=== PATIENT | male | born 1955 | race Caucasian/White ===

== ENCOUNTER 2018-08-01 18:14 | Emergency (ER) | payer OTHER, BC ==
--- OUTSIDE RECORDS SUMMARY | 2018-08-01 18:16 | XMS REPORT | Clinical Summary ---
:1955 [address] Organization [facility] Address [address] [place] [address] Care Team Providers Name Role Phone Azeb Rose Primary Care Provider Allergies Not on File Medications Not on file Active Problems Not on file Social History Tobacco Use Types Packs/Day Years Used Date Never Assessed Sex Assigned at Date Recorded Not on file Job Start Date Occupation Industry Not on file Not on file Not on file Travel History Travel Start Travel End No recent travel history available. Last Filed Vital Signs Not on file Plan of Treatment Not on file Results Not on fileafter 07/31/2017 Insurance Payer Benefit Plan / Subscriber ID Type Phone Address Group BLUE CROSS/BLUE BCBS PPO POS EPO xxxxxxxxx PPO [phone] [address] [place] [address]
[2018-08-01] MEDS ORDERED: ONDANSETRON 4 MG/2 ML VIAL ONE ×2 (18:48→23:09)
[2018-08-01] MEDS ORDERED: FAMOTIDINE 20 MG/2 ML VIAL IV ONE (18:48)
[2018-08-01] MEDS ORDERED: NA CHLORIDE 0.9% 500 ML ONE (18:48)
[2018-08-01 18:52] LABS: Absolute Lymphocytes (CBC) 1.8 K/uL (0.7-4.9); Absolute Monocytes 0.9 K/uL (0.1-1.3); Absolute Neutrophil 11.1 K/uL (1.8-8.0); Basophils % 0.4 % (0-1.3); Eosinophils % 1.1 % (0-4.4); Hematocrit 56.8 % (39.6-49.0); Lymphocytes % 12.9 % (15.3-44.8); MPV 8.7 fL (7.6-11.3); Monocytes % 6.4 % (3.3-12.3); RBC Red Blood Cell Count 6.62 M/uL (4.33-5.43)
[2018-08-01 18:58] LABS: Protime INR 1.08
--- NOTE | 2018-08-01 19:16 | RAD REPORT ---
EXAM DESCRIPTION: RAD - Chest Single View - 08/01/2018 6:42 pm CLINICAL HISTORY: nausea/vomiting;Chest pain Chest pain. COMPARISON: Chest Single View dated 05/16/2016; CHEST PA AND LAT 2 VIEW dated 05/07/2015; CHEST SINGLE VIEW dated 04/26/2015; CHEST SINGLE VIEW dated 04/24/2015 FINDINGS: Portable technique limits examination quality. The lungs are grossly clear. The heart is normal in size. No displaced fractures. IMPRESSION: No acute intrathoracic process suspected.
[2018-08-01 19:17] LABS: ALT/SGPT 44 U/L (12-78); AST/SGOT 28 U/L (15-37); Albumin 3.9 g/dL (3.4-5.0); Alkaline Phosphatase 100 U/L (45-117); BUN Blood Urea Nitrogen 15 mg/dL (7-18); Bicarbonate 25 mmol/L (21-32); Bilirubin Direct 0.1 mg/dL (0-0.2); Bilirubin Total 0.5 mg/dL (0.2-1.0); Glucose Level 93 mg/dL (74-106); Lipase 163 U/L (73-393); Magnesium 2.2 mg/dL (1.8-2.4); Potassium 3.9 mmol/L (3.5-5.1); Protein, Total 8.5 g/dL (6.4-8.2); Sodium Level 141 mmol/L (136-145); Troponin (Emerg Dept Use Only) < 0.02 ng/mL (0.0-0.045)
[2018-08-01] MEDS ORDERED: ACETAMINOPHEN 500 MG TAB ONE (20:05)
--- NOTE | 2018-08-01 22:16 | ER ---
Nurse's Notes [facility] Name: Ihsan Alvares Age: 63 yrs Sex: Male : 1955 Arrival Date: 08/01/2018 Time: 18:15 Bed 27 Private MD: Diagnosis: Nausea and vomiting;Diarrhea, unspecified Presentation: 08/01 18:20 Presenting complaint: EMS states: patient was in urgent care today checking in when she mg2 suddenly feels nauseated and started vomiting, with on and off chest pain and near syncopal attack. . denies abdominal pain. BGL-[id number], zofran 4 mg was given IV. Transition of care: patient was not received from another setting of care. Onset of symptoms was August 01, 2018. Risk Assessment: Do you want to hurt yourself or someone else? Patient reports no desire to harm self or others. Initial Sepsis Screen: Does the patient meet any 2 criteria? No. Patient's initial sepsis screen is negative. Does the patient have a suspected source of infection? No. Patient's initial sepsis screen is negative. Care prior to arrival: None. 18:20 Method Of Arrival: EMS: [facility] mg2 18:20 Acuity: BENNIE 3 mg2 Historical: - Allergies: 18:24 No Known Allergies; mg2 - PMHx: 18:24 COPD; Hypertension; Sleep Apnea; mg2 - PSHx: 18:24 Appendectomy; mg2 - Immunization history:: Flu vaccine is up to date. - Social history:: Smoking status: Patient/guardian denies using tobacco, Patient/guardian denies using alcohol, street drugs, IV drugs. - Ebola Screening: : No symptoms or risks identified at this time. Screenin:26 Abuse screen: Denies threats or abuse. Denies injuries from another. Nutritional mg2 screening: No deficits noted. Tuberculosis screening: No symptoms or risk factors identified. Fall Risk IV access (20 points). Assessment: 18:44 General: Appears in no apparent distress. comfortable, Behavior is calm, cooperative. mg2 Pain: Complains of pain in chest Pain does not radiate. Pain currently is 2 out of 10 on a pain scale. Quality of pain is described as aching, Pain began gradually, Is intermittent. Neuro: Level of Consciousness is awake, alert, obeys commands, Oriented to person, place, time, situation. Cardiovascular: Capillary refill < 3 seconds Patient's skin is warm and dry. Cardiovascular: Reports chest pain. Respiratory: Airway is patent Respiratory effort is even, unlabored, Respiratory pattern is regular, symmetrical. GI: Reports nausea, vomiting, since morning. : No signs and/or symptoms were reported regarding the genitourinary system. EENT: No signs and/or symptoms were reported regarding the EENT system. Derm: Skin is intact, is healthy with good turgor, Skin is pink, warm \T\ dry. normal. Musculoskeletal: Circulation, motion, and sensation intact. Capillary refill < 3 seconds. 22:18 Reassessment: patient is up for discharge after iv antibiotic infusion. mg2 Vital Signs: 18:22 BP 156 / 76; Pulse 101; Resp 18; Temp 98.6; Pulse Ox 99% on R/A; Weight 95.25 kg; mg2 Height 5 ft. 9 in. (175.26 cm); Pain 2/10; 19:25 BP 155 / 72; Pulse 92; Resp 18; Temp 98.5; Pulse Ox 95% on R/A; mg2 20:05 BP 154 / 76; Pulse 88; Resp 18; Temp 98.5; Pulse Ox 95% on R/A; Pain 0/10; mg2 23:02 BP 145 / 78; Pulse 85; Resp 18; Temp 98; Pulse Ox 100% on R/A; Pain 0/10; mg2 18:22 Body Mass Index 31.01 (95.25 kg, 175.26 cm) mg2 ED Course: 18:15 Patient arrived in ED. ds1 18:16 Ted Stone PA is PHCP. cp 18:16 Jogre A Balbuena MD is Attending Physician. cp 18:19 Tono Rider, IMMANUEL is Primary Nurse. mg2 18:22 Triage completed. mg2 18:26 Arm band placed on. mg2 18:42 XRAY Chest (1 view) In Process Unspecified. EDMS 18:44 No provider procedures requiring assistance completed. Maintain EMS IV. Dressing mg2 intact. Good blood return noted. Site clean \T\ dry. Gauge \T\ site: 18 \T\RAC. 18:46 Patient has correct armband on for positive identification. mg2 20:[address] via wheelchair. vm2 21:10 CT Abd/Pelvis - W/Contrast: no oral contrast In Process Unspecified. EDMS 21:51 Gutierrez Garcia MD is Attending Physician. cp 23:02 IV discontinued, intact, bleeding controlled, No redness/swelling at site. Pressure mg2 dressing applied. Administered Medications: 18:41 Drug: NS 0.9% 1000 ml Route: IV; Rate: 500 ml/hr; Site: right antecubital; mg2 22:04 Follow up: Response: No adverse reaction; IV Status: Completed infusion; IV Intake: mg2 1000ml 18:43 Drug: Zofran 4 mg Route: IVP; Site: right antecubital; mg2 19:23 Follow up: Response: No adverse reaction; Marked relief of symptoms mg2 18:43 Drug: Pepcid 20 mg Route: IVP; Site: right antecubital; mg2 19:23 Follow up: Response: No adverse reaction; Marked relief of symptoms mg2 19:57 Drug: Tylenol 1000 mg Route: PO; mg2 22:04 Follow up: Response: No adverse reaction; Marked relief of symptoms mg2 22:17 Drug: Cipro 500 mg Route: PO; mg2 23:00 Follow up: Response: No adverse reaction mg2 22:17 Drug: metroNIDAZOLE 500 mg Volume: 100 ml; Route: IVPB; Infused Over: 30 mins; Site: mg2 right antecubital; 23:00 Follow up: Response: No adverse reaction; IV Status: Completed infusion mg2 23:01 Drug: Zofran 4 mg Route: IVP; Site: right antecubital; mg2 23:01 Follow up: Response: No adverse reaction; Medication administered at discharge. mg2 Intake: 22:04 IV: 1000ml; Total: 1000ml. mg2 Outcome: 22:16 Discharge ordered by . cp 23:03 Discharged to home ambulatory, with family. mg2 23:03 Condition: stable 23:03 Discharge instructions given to patient, family, Instructed on discharge instructions, follow up and referral plans. medication usage, Demonstrated understanding of instructions, follow-up care, medications, Prescriptions given X 3. 23:06 Patient left the ED. mg2 Signatures: Dispatcher [employer] [facility] Cami Sanchez ds1 Ted Stone PA PA cp McGuire, Victoria vm2 Tono Rider, IMMANUEL RN mg2
--- NOTE | 2018-08-01 22:16 | EDPHYS ---
Physician Documentation [facility] Name: Ihsan Alvares Age: 63 yrs Sex: Male : 1955 Arrival Date: 08/01/2018 Time: 18:15 Bed 27 Private MD: ED Physician Gutierrez Garcia HPI: 08/01 18:23 This 63 yrs old Male presents to ER via EMS with complaints of nausea, cp vomiting and diarrhea. 18:23 The patient presents to the emergency department with nausea, that is moderate, cp vomiting, that is continuous, diarrhea, that is continuous. Onset: The symptoms/episode began/occurred this morning. Possible causes: unknown. Associated signs and symptoms: Pertinent positives: intermittent chest pain, Pertinent negatives: abdominal pain, constipation, dysuria, fever, GI bleeding. Severity of symptoms: in the emergency department the symptoms are unchanged despite home interventions. Historical: - Allergies: 18:24 No Known Allergies; mg2 - PMHx: 18:24 COPD; Hypertension; Sleep Apnea; mg2 - PSHx: 18:24 Appendectomy; mg2 - Immunization history:: Flu vaccine is up to date. - Social history:: Smoking status: Patient/guardian denies using tobacco, Patient/guardian denies using alcohol, street drugs, IV drugs. - Ebola Screening: : No symptoms or risks identified at this time. ROS: 18:30 Constitutional: Positive for poor PO intake, Negative for body aches, chills, fever. cp 18:30 Eyes: Negative for injury, pain, redness, and discharge. cp 18:30 ENT: Negative for drainage from ear(s), ear pain, sore throat, difficulty swallowing, difficulty handling secretions. 18:30 Cardiovascular: Positive for chest pain, Negative for palpitations. 18:30 Respiratory: Negative for cough, shortness of breath, wheezing. 18:30 Abdomen/GI: Positive for nausea and vomiting, diarrhea, Negative for abdominal pain, constipation, dysphagia, hematemesis, black/tarry stool, rectal bleeding. 18:30 Back: Negative for pain at rest, pain with movement, radiated pain. 18:30 : Negative for urinary symptoms, testicular pain 18:30 Skin: Negative for cellulitis, rash. 18:30 Neuro: Positive for near syncope, Negative for altered mental status, headache. 18:30 All other systems are negative. Exam: 18:33 ECG was reviewed by the Attending Physician. cp 18:35 Constitutional: The patient appears in no acute distress, alert, awake, cp non-diaphoretic, non-toxic, well developed, well nourished. 18:35 Head/Face: Normocephalic, atraumatic. cp 18:35 Eyes: Periorbital structures: appear normal, Conjunctiva: normal, no exudate, no injection, Sclera: no appreciated abnormality, Lids and lashes: appear normal, bilaterally. 18:35 ENT: External ear(s): are unremarkable, Nose: is normal, Mouth: Lips: moist, Oral mucosa: moist, Posterior pharynx: is normal, airway is patent, no erythema, no exudate. 18:35 Neck: ROM/movement: is normal, is supple, without pain, no range of motions limitations, no meningismus, no nuchal rigidity. 18:35 Chest/axilla: Inspection: normal, Palpation: is normal, no crepitus, no tenderness. 18:35 Cardiovascular: Rate: tachycardic, Rhythm: regular, Edema: is not appreciated, JVD: is not appreciated. 18:35 Respiratory: the patient does not display signs of respiratory distress, Respirations: normal, no use of accessory muscles, no retractions, no splinting, no tachypnea, labored breathing, is not present, Breath sounds: are clear throughout, no decreased breath sounds, no stridor, no wheezing. 18:35 Abdomen/GI: Inspection: abdomen appears normal, Bowel sounds: active, all quadrants, Palpation: soft, in all quadrants, mild abdominal tenderness, in all quadrants, rebound tenderness, is not appreciated, voluntary guarding, is not appreciated, involuntary guarding, is not appreciated. 18:35 Back: pain, is absent, ROM is normal. 18:35 Skin: no rash present. 18:35 Neuro: Orientation: to person, place \T\ time. Mentation: is normal, Cerebellar function: is grossly normal, Motor: moves all fours, strength is normal, Sensation: is normal. Vital Signs: 18:22 BP 156 / 76; Pulse 101; Resp 18; Temp 98.6; Pulse Ox 99% on R/A; Weight 95.25 kg; mg2 Height 5 ft. 9 in. (175.26 cm); Pain 2/10; 19:25 BP 155 / 72; Pulse 92; Resp 18; Temp 98.5; Pulse Ox 95% on R/A; mg2 20:05 BP 154 / 76; Pulse 88; Resp 18; Temp 98.5; Pulse Ox 95% on R/A; Pain 0/10; mg2 23:02 BP 145 / 78; Pulse 85; Resp 18; Temp 98; Pulse Ox 100% on R/A; Pain 0/10; mg2 18:22 Body Mass Index 31.01 (95.25 kg, 175.26 cm) mg2 MDM: 18:17 Patient medically screened. cp 22:15 Data reviewed: vital signs, nurses notes, lab test result(s), EKG, radiologic studies, cp CT scan. 22:15 Test interpretation: by ED physician or midlevel provider: ECG. Counseling: I had a cp detailed discussion with the patient and/or guardian regarding: the historical points, exam findings, and any diagnostic results supporting the discharge/admit diagnosis, lab results, radiology results, the need for outpatient follow up, a family practitioner. Response to treatment: the patient's symptoms have markedly improved after treatment, VSS. Pain and nausea markedly improved, vomiting resolved. Will discharge to home for continued monitoring. 08/01 18:30 Order name: Basic Metabolic Panel; Complete Time: 20:42 cp 08/01 18:30 Order name: CBC with Diff; Complete Time: 20:42 cp 08/01 18:30 Order name: LFT's; Complete Time: 20:42 cp 08/01 18:30 Order name: Magnesium; Complete Time: 20:42 cp 08/01 18:30 Order name: PT-INR; Complete Time: 20:42 cp 08/01 18:30 Order name: Troponin (emerg Dept Use Only); Complete Time: 20:42 cp 08/01 18:30 Order name: XRAY Chest (1 view); Complete Time: 20:42 cp 08/01 18:30 Order name: Lipase; Complete Time: 20:42 cp 08/01 20:43 Order name: CT Abd/Pelvis - W/Contrast: no oral contrast cp 08/01 18:30 Order name: EKG; Complete Time: 18:33 cp 08/01 18:30 Order name: Cardiac monitoring; Complete Time: 18:43 cp 08/01 18:30 Order name: EKG - Nurse/Tech; Complete Time: 18:43 cp 08/01 18:30 Order name: IV Saline Lock; Complete Time: 18:43 cp 08/01 18:30 Order name: Labs collected and sent; Complete Time: 18:43 cp 08/01 18:30 Order name: O2 Per Protocol; Complete Time: 18:43 cp 08/01 18:30 Order name: O2 Sat Monitoring; Complete Time: 18:44 cp 08/01 21:59 Order name: PO challenge; Complete Time: 22:17 cp EC:33 Rate is 101 beats/min. Rhythm is regular. CT interval is prolonged at 244 msec. QRS cp interval is normal. QT interval is normal. Interpreted by me. Reviewed by me. Administered Medications: 18:41 Drug: NS 0.9% 1000 ml Route: IV; Rate: 500 ml/hr; Site: right antecubital; mg2 22:04 Follow up: Response: No adverse reaction; IV Status: Completed infusion; IV Intake: mg2 1000ml 18:43 Drug: Zofran 4 mg Route: IVP; Site: right antecubital; mg2 19:23 Follow up: Response: No adverse reaction; Marked relief of symptoms mg2 18:43 Drug: Pepcid 20 mg Route: IVP; Site: right antecubital; mg2 19:23 Follow up: Response: No adverse reaction; Marked relief of symptoms mg2 19:57 Drug: Tylenol 1000 mg Route: PO; mg2 22:04 Follow up: Response: No adverse reaction; Marked relief of symptoms mg2 22:17 Drug: Cipro 500 mg Route: PO; mg2 23:00 Follow up: Response: No adverse reaction mg2 22:17 Drug: metroNIDAZOLE 500 mg Volume: 100 ml; Route: IVPB; Infused Over: 30 mins; Site: mg2 right antecubital; 23:00 Follow up: Response: No adverse reaction; IV Status: Completed infusion mg2 23:01 Drug: Zofran 4 mg Route: IVP; Site: right antecubital; mg2 23:01 Follow up: Response: No adverse reaction; Medication administered at discharge. mg2 Disposition: 08/02 22:38 Co-signature as Attending Physician, Gutierrez Garcia MD. gs Disposition: 08/01/18 22:16 Discharged to Home. Impression: Nausea and vomiting, Diarrhea, unspecified. - Condition is Stable. - Discharge Instructions: Food Choices to Help Relieve Diarrhea, Adult, Diarrhea, Adult, Clear Liquid Diet, Adult, Nausea and Vomiting, Adult. - Prescriptions for Bentyl 20 mg Oral Tablet - take 1 tablet by ORAL route every 6 hours As needed; 20 tablet. Zofran 4 mg Oral Tablet - take 1 tablet by ORAL route every 12 hours As needed; 20 tablet. Cipro 500 mg Oral Tablet - take 1 tablet by ORAL route every 12 hours for 10 days; 20 tablet. Metronidazole 500 mg Oral Tablet - take 1 tablet by ORAL route every 8 hours for 10 days; 30 tablet. - Medication Reconciliation Form, Thank You Letter, Antibiotic Education, Prescription Opioid Use form. - Follow up: Private Physician; When: 1 - 2 days; Reason: Recheck today's complaints. - Problem is new. - Symptoms have improved. Signatures: Dispatcher [employer] EDMS Ted Stone PA PA cp Gutierrez Garcia MD MD gs Tono Rider RN RN mg2 Corrections: (The following items were deleted from the chart) 08/01 23:06 22:16 08/01/2018 22:16 Discharged to Home. Impression: Nausea and vomiting; Diarrhea, mg2 unspecified. Condition is Stable. Forms are Medication Reconciliation Form, Thank You Letter, Antibiotic Education, Prescription Opioid Use. Follow up: Private Physician; When: 1 - 2 days; Reason: Recheck today's complaints. Problem is new. Symptoms have improved. cp
[2018-08-01] MEDS ORDERED: METRONIDAZOLE 500mg IVPB 500 MG/100 ML BAG IV ONE (22:22)
[2018-08-01] MEDS ORDERED: CIPROFLOXACIN HCL 500 MG TAB ONE (22:22)
[2018-08-01 23:29] VITALS: BP 145/78; TEMP 98; O2SAT 100
--- NOTE | 2018-08-02 09:23 | RAD REPORT ---
EXAM DESCRIPTION: CT - Abdomen Pelvis W Contrast - 08/01/2018 9:58 pm CLINICAL HISTORY: 63 years Male diarrhea;Nausea / vomiting COMPARISON: None TECHNIQUE: Images were obtained in axial, sagittal, and coronal planes. Intravenous contrast was adm inistered. Arterial and venous phase imaging was performed in the axial projection. This exam was performed according to our departmental dose-optimization program which includes use of Automated Exposure Control, adjustment of the mA and/or kV according to patient size and/or use of i terative reconstruction technique. FINDINGS: No abnormality involving the liver, pancreas, gallbladder and adrenal glands bilaterally. Spleen is enlarged measuring 13 cm in greatest dimension. No obstructing renal calcifications bilaterally. No hydronephrosis bilaterally. Unremarkable bladder and prostate gland. Left renal cyst. Appendix not well identified however no secondary signs for appendicitis. No bowel obstruction, or pe rforation. Mucosal thickening versus incomplete distention involving the colon. No abnormality lower lungs bilaterally. No acute osseous abnormality. IMPRESSION: Colitis versus incomplete distention involving colon. Enlarged spleen. Otherwise unremarkable study. Electronically signed by: Clare Jackson MD 08/01/2018 9:21 PM CDT Due to temporary technical issues with the PACS/Fluency reporting system, reports are being signed by the in house radiologist as a courtesy to ensure prompt reporting. The interpreting radiologist is f ully responsible for the content of the report.
--- NOTE | 2018-08-02 16:33 | EKG ---
Test Date: 2018-08-01 Test Time: 18:24:37 Cake Puncher: MAVERICKT MEASUREMENT RESULTS: Intervals: Rate: 101 WV: 244 QRSD: 92 QT: 322 QTc: 417 [place]: P: 64 WV: 244 QRS: -46 T: 62 INTERPRETIVE STATEMENTS: Sinus tachycardia with 1st degree AV block Left axis Voltage criteria for left ventricular hypertrophy Abnormal ECG Compared to ECG 05/16/2016 10:59:20 Sinus rhythm no longer present Sinus arrhythmia no longer present Electronically Signed On 08-02-18 16:32:17 CDT by Kevin Sanchez
== END 2018-08-01 23:06 | disposition home or self-care (01) ==
LOC: ER 18:14
DX: R19.7 Diarrhea, unspecified (principal); I10 Essential (primary) hypertension
CPT/HCPCS: 85025; 80048; 36415; 83735; 85610; 80076; 84484; 83690; 74177; 71045; Q9967; J2405 ×2; 93005

== ENCOUNTER 2018-08-06 10:09 | Emergency (ER) | payer OTHER, BC ==
--- OUTSIDE RECORDS SUMMARY | 2018-08-06 10:12 | XMS REPORT | Clinical Summary ---
:1955 Author Organization [facility] Address [address] [place] [address] Care Team Providers Name Role Phone Azeb [...] Not on file Results Not on fileafter 08/05/2017 Insurance Payer Benefit Plan / Subscriber ID Type Phone Address Group BLUE CROSS/BLUE BCBS PPO POS EPO xxxxxxxxx PPO [phone] [address] [place] [address]
[2018-08-06] MEDS ORDERED: METHYLPREDNISOLONE 125 MG INJ ONE (11:00)
[2018-08-06] MEDS ORDERED: ONDANSETRON 4 MG/2 ML VIAL ONE (11:01)
[2018-08-06] MEDS ORDERED: CEFTRIAXONE/SWI 1gm 1 GM/10 ML SYR ONE (11:01)
[2018-08-06] MEDS ORDERED: METRONIDAZOLE 500mg IVPB 500 MG/100 ML BAG IV ONE (11:01)
[2018-08-06] MEDS ORDERED: MORPHINE 4 MG/ML SYR ONE (11:01)
[2018-08-06] MEDS ORDERED: NA CHLORIDE 0.9% 1,000 ML ONE (11:01)
[2018-08-06 11:03] LABS: Absolute Lymphocytes (CBC) 1.7 K/uL (0.7-4.9); Absolute Monocytes 0.9 K/uL (0.1-1.3); Absolute Neutrophil 6.9 K/uL (1.8-8.0); Basophils % 0.4 % (0-1.3); Eosinophils % 3.4 % (0-4.4); Hematocrit 54.2 % (39.6-49.0); Lymphocytes % 17.3 % (15.3-44.8); MPV 8.7 fL (7.6-11.3); Monocytes % 8.8 % (3.3-12.3); RBC Red Blood Cell Count 6.35 M/uL (4.33-5.43)
[2018-08-06 11:19] LABS: ALT/SGPT 53 U/L (12-78); AST/SGOT 43 U/L (15-37); Albumin 3.6 g/dL (3.4-5.0); Alkaline Phosphatase 82 U/L (45-117); BUN Blood Urea Nitrogen 11 mg/dL (7-18); Bicarbonate 25 mmol/L (21-32); Bilirubin Direct 0.1 mg/dL (0-0.2); Bilirubin Total 0.5 mg/dL (0.2-1.0); Glucose Level 97 mg/dL (74-106); Lipase 180 U/L (73-393); Potassium 4.2 mmol/L (3.5-5.1); Protein, Total 7.8 g/dL (6.4-8.2); Sodium Level 140 mmol/L (136-145)
--- NOTE | 2018-08-06 11:40 | ER ---
Nurse's Notes [facility] Name: Ihsan Alvares Age: 63 yrs Sex: Male : 1955 Arrival Date: 08/06/2018 Time: 10:12 Bed 14 Private MD: Unknown, Unknown Diagnosis: Diarrhea, unspecified Presentation: 08/06 10:33 Presenting complaint: Patient states: Seen in ER 6 days ago and diagnosed with colitis. ss Pt still c/o lower abd discomfort, diarrhea and fatigue now with blood tinged toilet paper after having BM. Transition of care: patient was not received from another setting of care. Onset of symptoms was August 01, 2018. Risk Assessment: Do you want to hurt yourself or someone else? Patient reports no desire to harm self or others. Initial Sepsis Screen: Does the patient meet any 2 criteria? HR > 90 bpm. Does the patient have a suspected source of infection? No. Patient's initial sepsis screen is negative. Care prior to arrival: None. 10:33 Method Of Arrival: Ambulatory ss 10:33 Acuity: BENNIE 3 ss Historical: - Allergies: 10:37 No Known Allergies; ss - PMHx: 10:37 Sleep Apnea; Hypertension; COPD; Anxiety; Depression; ulcerative colitis; ss - PSHx: 10:37 Appendectomy; ss - Immunization history:: Adult Immunizations up to date. - Social history:: Smoking status: Patient/guardian denies using tobacco, Patient/guardian denies using alcohol, street drugs, The patient lives with family. - Ebola Screening: : Patient denies exposure to infectious person Patient denies travel to an Ebola-affected area in the 21 days before illness onset. - Family history:: not pertinent. Screenin:19 Abuse screen: Denies threats or abuse. Denies injuries from another. Nutritional ph screening: No deficits noted. Tuberculosis screening: No symptoms or risk factors identified. Fall Risk None identified. Assessment: 11:18 General: Appears in no apparent distress. comfortable, well groomed, Behavior is calm, ph cooperative, appropriate for age. Pain: Complains of pain in right lower quadrant and left lower quadrant. Neuro: Level of Consciousness is awake, alert, obeys commands, Oriented to person, place, time, situation. Cardiovascular: Capillary refill < 3 seconds in bilateral fingers Patient's skin is warm and dry. Respiratory: Airway is patent Respiratory effort is even, unlabored, Respiratory pattern is regular, symmetrical. GI: Abdomen is round non-distended, Bowel sounds present X 4 quads. Abd is soft X 4 quads Abdomen is tender to palpation in right lower quadrant and left lower quadrant Reports lower abdominal pain, diarrhea, rectal bleeding, nausea, vomiting. Derm: Skin is intact, Skin is pink, warm \T\ dry. Musculoskeletal: Circulation, motion, and sensation intact. Range of motion: intact in all extremities. 12:30 Reassessment: Patient appears in no apparent distress at this time. Patient and/or ph family updated on plan of care and expected duration. Pain level reassessed. Patient is alert, oriented x 3, equal unlabored respirations, skin warm/dry/pink. Vital Signs: 10:18 BP 184 / 81; Pulse 96; Resp 18; Temp 98.3(O); Pulse Ox 96% on R/A; Weight 92.99 kg; ss Height 5 ft. 9 in. (175.26 cm); Pain 4/10; 11:19 BP 156 / 70; Pulse 89; Resp 18; Pulse Ox 96% on R/A; Pain 1/10; ph 12:30 BP 142 / 76; Pulse 81; Resp 18; Temp 97.9; Pulse Ox 97% on R/A; ph 10:18 Body Mass Index 30.27 (92.99 kg, 175.26 cm) ED Course: 10:12 Patient arrived in ED. ag5 10:12 Unknown, Unknown is Private Physician. ag5 10:18 Arm band placed on right wrist. ss 10:19 Emily Doe MD is Attending Physician. ma2 10:30 Vannesa Gee, IMMANUEL is Primary Nurse. ph 10:36 Triage completed. ss 10:55 Initial lab(s) drawn, by nj, sent to lab. Inserted saline lock: 20 gauge in right mh5 antecubital area, using aseptic technique. Blood collected. 10:56 Patient has correct armband on for positive identification. Placed in gown. Bed in low mh5 position. Call light in reach. Side rails up X 1. Warm blanket given. Pulse ox on. NIBP on. 10:57 Basic Metabolic Panel Sent. 5 10:57 CBC with Diff Sent. mh5 10:57 [facility] 10:57 [facility] 12:40 No provider procedures requiring assistance completed. IV discontinued, intact, ph bleeding controlled, No redness/swelling at site. Pressure dressing applied. Administered Medications: 11:05 Drug: NS 0.9% 1000 ml Route: IV; Rate: 1 bolus; Site: right antecubital; ph 11:06 Drug: Zofran 4 mg Route: IVP; Site: right antecubital; ph 11:16 Follow up: Response: No adverse reaction; Nausea is decreased ph 11:08 Drug: morphine 4 mg Route: IVP; Site: right antecubital; ph 11:15 Follow up: Response: No adverse reaction; Pain is decreased ph 11:09 Drug: MethylPrednisoLONE 125 mg Route: IVP; Site: right antecubital; ph 11:16 Follow up: Response: No adverse reaction ph 11:10 Drug: Rocephin 1 grams Route: IV; Rate: calculated rate; Site: right antecubital; ph 11:16 Follow up: Response: No adverse reaction; IV Status: Completed infusion ph 11:12 Drug: Flagyl 500 mg Volume: 100 ml; Route: IVPB; Rate: 200 ml/hr; Infused Over: 30 ph mins; Site: right antecubital; 11:45 Follow up: Response: No adverse reaction; IV Status: Completed infusion ph Outcome: 11:40 Discharge ordered by MD. garcia 12:44 Patient left the ED. ph 12:44 Discharged to home ambulatory, with family. ph 12:44 Condition: improved 12:44 Discharge instructions given to patient, family, Instructed on discharge instructions, follow up and referral plans. medication usage, Demonstrated understanding of instructions, follow-up care, medications, Prescriptions given X 2. Signatures: Nahomi Sainz RN RN Vannesa Gee RN RN [facility] Emily Doe MD MD [facility] Gabe Gonzalez [facility] [place]
--- NOTE | 2018-08-06 11:41 | EDPHYS ---
Physician Documentation [facility] Name: Ihsan Alvares Age: 63 yrs Sex: Male : 1955 Arrival Date: 08/06/2018 Time: 10:12 Bed 14 Private MD: Unknown, Unknown ED Physician Emily Doe HPI: 08/06 11:21 This 63 yrs old Male presents to ER via Ambulatory with complaints of ma2 Abdominal Pain, Nausea/Vomiting/Diarrhea. 11:21 The patient presents to the emergency department with diarrhea. Onset: The ma2 symptoms/episode began/occurred gradually, 3 day(s) ago. Possible causes: UC. Associated signs and symptoms: Pertinent positives: diarrhea, Pertinent negatives: anorexia, diarrhea, fever, flatulence. Severity of symptoms: At their worst the symptoms were moderate in the emergency department the symptoms are unchanged. The patient has experienced similar episodes in the past. Historical: - Allergies: 10:37 No Known Allergies; ss - PMHx: 10:37 Sleep Apnea; Hypertension; COPD; Anxiety; Depression; ulcerative colitis; ss - PSHx: 10:37 Appendectomy; ss - Immunization history:: Adult Immunizations up to date. - Social history:: Smoking status: Patient/guardian denies using tobacco, Patient/guardian denies using alcohol, street drugs, The patient lives with family. - Ebola Screening: : Patient denies exposure to infectious person Patient denies travel to an Ebola-affected area in the 21 days before illness onset. - Family history:: not pertinent. ROS: 11:21 Constitutional: Negative for fever, chills, and weight loss, Cardiovascular: Negative ma2 for chest pain, palpitations, and edema, Respiratory: Negative for shortness of breath, cough, wheezing, and pleuritic chest pain. 11:21 Abdomen/GI: Positive for diarrhea, Negative for abdominal pain, nausea and vomiting. 11:21 All other systems are negative. Exam: 11:21 Constitutional: This is a well developed, well nourished patient who is awake, alert, ma2 and in no acute distress. ENT: Nares patent. No nasal discharge, no septal abnormalities noted. Tympanic membranes are normal and external auditory canals are clear. Oropharynx with no redness, swelling, or masses, exudates, or evidence of obstruction, uvula midline. Mucous membranes moist. Chest/axilla: Normal chest wall appearance and motion. Nontender with no deformity. No lesions are appreciated. Cardiovascular: Regular rate and rhythm with a normal S1 and S2. No gallops, murmurs, or rubs. Normal PMI, no JVD. No pulse deficits. Respiratory: Lungs have equal breath sounds bilaterally, clear to auscultation and percussion. No rales, rhonchi or wheezes noted. No increased work of breathing, no retractions or nasal flaring. Abdomen/GI: Soft, non-tender, with normal bowel sounds. No distension or tympany. No guarding or rebound. No evidence of tenderness throughout. Back: No spinal tenderness. No costovertebral tenderness. Full range of motion. MS/ Extremity: Pulses equal, no cyanosis. Neurovascular intact. Full, normal range of motion. Vital Signs: 10:18 BP 184 / 81; Pulse 96; Resp 18; Temp 98.3(O); Pulse Ox 96% on R/A; Weight 92.99 kg; ss Height 5 ft. 9 in. (175.26 cm); Pain 4/10; 11:19 BP 156 / 70; Pulse 89; Resp 18; Pulse Ox 96% on R/A; Pain 1/10; ph 12:30 BP 142 / 76; Pulse 81; Resp 18; Temp 97.9; Pulse Ox 97% on R/A; ph 10:18 Body Mass Index 30.27 (92.99 kg, 175.26 cm) MDM: 10:19 [facility] medically [facility]. [facility] 11:21 Differential diagnosis: Nonspecific abd pain, pancreatitis, viral gastroenteritis, UC ma2 flare. 11:40 Data reviewed: vital signs, nurses notes. Counseling: I had a detailed discussion with ma2 the patient and/or guardian regarding: the historical points, exam findings, and any diagnostic results supporting the discharge/admit diagnosis, the presence of at least one elevated blood pressure reading (>120/80) during this emergency department visit, the need for outpatient follow up. Response to treatment: the patient's symptoms have markedly improved after treatment. 08/06 10:34 Order name: Basic Metabolic Panel; Complete Time: 11:23 [facility] 08/06 10:34 Order name: CBC with Diff; Complete Time: 11: [facility] 05/27 10:34 Order name: Creatinine for Radiology; Complete Time: 11:23 ma2 08/06 10:34 Order name: Hepatic Function; Complete Time: 11:23 ma2 08/06 10:34 Order name: Lipase; Complete Time: 11:23 ma2 08/06 10:34 Order name: IV Saline Lock; Complete Time: 10:53 ma2 08/06 10:34 Order name: Labs collected and sent; Complete Time: 10:54 ma2 Administered Medications: 11:05 Drug: NS 0.9% 1000 ml Route: IV; Rate: 1 bolus; Site: right antecubital; ph 11:06 Drug: Zofran 4 mg Route: IVP; Site: right antecubital; ph 11:16 Follow up: Response: No adverse reaction; Nausea is decreased ph 11:08 Drug: morphine 4 mg Route: IVP; Site: right antecubital; ph 11:15 Follow up: Response: No adverse reaction; Pain is decreased ph 11:09 Drug: MethylPrednisoLONE 125 mg Route: IVP; Site: right antecubital; ph 11:16 Follow up: Response: No adverse reaction ph 11:10 Drug: Rocephin 1 grams Route: IV; Rate: calculated rate; Site: right antecubital; ph 11:16 Follow up: Response: No adverse reaction; IV Status: Completed infusion ph 11:12 Drug: Flagyl 500 mg Volume: 100 ml; Route: IVPB; Rate: 200 ml/hr; Infused Over: 30 ph mins; Site: right antecubital; 11:45 Follow up: Response: No adverse reaction; IV Status: Completed infusion ph Disposition: 08/06/18 11:40 Discharged to Home. Impression: Diarrhea, unspecified. - Condition is Stable. - Discharge Instructions: Food Choices to Help Relieve Diarrhea, Adult. - Prescriptions for Medrol (Jaylen) 4 mg Oral Tablets, Dose Pack - take 1 tablet by ORAL route as directed - follow package instructions; 1 packet. Zofran 4 mg Oral Tablet - take 1 tablet by ORAL route every 12 hours As needed; 20 tablet. - Medication Reconciliation Form, Thank You Letter, Antibiotic Education, Prescription Opioid Use form. - Follow up: Private Physician; When: Tomorrow; Reason: Continuance of care. Signatures: Dispatcher [facility] Nahomi Moore RN RN Vannesa Gee RN RN ph Emily Doe MD MD ma2 Corrections: (The following items were deleted from the chart) 12:44 11:40 08/06/2018 11:40 Discharged to Home. Impression: Diarrhea, unspecified. Condition ph is Stable. Prescriptions for Medrol (Jaylen) 4 mg Oral Tablets, Dose Pack - take 1 tablet by ORAL route as directed - follow package instructions; 1 packet. and Forms are Medication Reconciliation Form, Thank You Letter, Antibiotic Education, Prescription Opioid Use. Follow up: Private Physician; When: Tomorrow; Reason: Continuance of care. ma2
[2018-08-06 13:15] VITALS: TEMP 98.3; O2SAT 96
[2018-08-06 13:16] VITALS: BP 156/70
== END 2018-08-06 12:44 | disposition home or self-care (01) ==
LOC: ER 10:09
DX: R19.7 Diarrhea, unspecified (principal); I10 Essential (primary) hypertension
CPT/HCPCS: 96365; 85025; 80048; 36415; 80076; 83690; 96375; 99284; J0696; J7030; J2930; J2405

== ENCOUNTER 2018-09-20 12:38 | Emergency (ER) | payer OTHER, BC ==
--- OUTSIDE RECORDS SUMMARY | 2018-09-20 12:40 | XMS REPORT | Clinical Summary ---
:1955 Author Organization [facility] Address [address] [place] [address] Care Team Providers Name Role Phone Azeb [...] Not on file Results Not on fileafter 09/19/2017 Insurance Payer Benefit Plan / Subscriber ID Type Phone Address Group BLUE CROSS/BLUE BCBS PPO POS EPO xxxxxxxxx PPO [phone] [address] [place] [address]
[2018-09-20] MEDS ORDERED: NALOXONE HCL 2 MG/2 ML VIAL ONE (13:17)
--- NOTE | 2018-09-20 13:17 | RAD REPORT ---
EXAM DESCRIPTION: CT - Ct Stroke Brain Wo Cont - 09/20/2018 1:10 pm CLINICAL HISTORY: Stroke-like symptoms, confusion, transient alteration of awareness, slurred speech CLINICAL HISTORY: CT head April 2015 TECHNIQUE: Axial 5 millimeter thick images of the head were obtained without IV contrast. All CT scans are performed using dose optimization technique as appropriate and may include automated exposure control or mA/KV adjustment according to patient size. FINDINGS: No intracranial hemorrhage, mass, or cerebral edema. No acute cortical based infarction. N o cortical edema or sulcal effacement. Atrophy and chronic ischemic changes are minimal and similar t o 2016. Ventricles are in proportion to volume loss. Patient has a normal variant cavum septum pelluc idum. Physiologic and arterial calcifications are present. No extra-axial fluid collections. Macdonald ma tter-white matter differentiation is preserved. Visualized portions of the mastoid air cells, paranasal sinuses, and orbits are unremarkable. Findings telephoned to the referring physician 1310 hours IMPRESSION: No intracranial hemorrhage is present. No acute cortical infarction identifiable. Patient has minimal atrophy and chronic ischemic changes that are similar to 2016. No acute intracranial findings or significant interval changes.
[2018-09-20 13:22] LABS: Absolute Lymphocytes (CBC) 2.1 K/uL (0.7-4.9); Basophils % 0.3 % (0-1.3); Eosinophils % 6.4 % (0-4.4); Lymphocytes % 15.6 % (15.3-44.8); MPV 8.9 fL (7.6-11.3); Monocytes % 8.4 % (3.3-12.3); RBC Red Blood Cell Count 5.38 M/uL (4.33-5.43)
[2018-09-20 13:25] LABS: Protime INR 0.91
--- NOTE | 2018-09-20 13:38 | RAD REPORT ---
EXAM DESCRIPTION: RAD - Chest Single View - 09/20/2018 1:26 pm CLINICAL HISTORY: Stroke protocol chest film, transient alteration of awareness, COPD, hypertension COMPARISON: September 19, 2018 TECHNIQUE: AP portable chest image was obtained 1306 hours . FINDINGS: Lung volumes are low compared to prior study. No new mass, infiltrate or failure finding. Lung markings are prominent but stable. Heart and vasculature are normal. No measurable pleural effus ion and no pneumothorax. No acute bony abnormality seen. No acute aortic findings suspected. IMPRESSION: No acute cardiopulmonary process. No significant change from comparison.
[2018-09-20] MEDS ORDERED: FLUMAZENIL 0.1 MG/ML (5 mL VIAL) IV ONE (13:48)
[2018-09-20 13:49] LABS: ALT/SGPT 36 U/L (12-78); AST/SGOT 17 U/L (15-37); Albumin 3.3 g/dL (3.4-5.0); Alkaline Phosphatase 79 U/L (45-117); BUN Blood Urea Nitrogen 18 mg/dL (7-18); Bicarbonate 29 mmol/L (21-32); Bilirubin Direct < 0.1 mg/dL (0-0.2); Bilirubin Total 0.3 mg/dL (0.2-1.0); CKMB Creatine Kinase MB < 1.0 ng/mL (0.3-3.6); Creatine Phosphokinase 159 U/L (39-308); Glucose Level 82 mg/dL (74-106); Lipase 205 U/L (73-393); Potassium 4.4 mmol/L (3.5-5.1); Protein, Total 6.9 g/dL (6.4-8.2); Sodium Level 143 mmol/L (136-145); Troponin (Emerg Dept Use Only) < 0.02 ng/mL (0.0-0.045)
--- NOTE | 2018-09-20 14:47 | ER ---
Nurse's Notes [facility] Name: Ihsan Alvares Age: 63 yrs Sex: Male : 1955 Arrival Date: 09/20/2018 Time: 12:39 Bed 6 Private MD: Tammi Multani H Diagnosis: Accidental medication overdose (narcotic and benzodiazepine) Presentation: 09/20 12:50 Presenting complaint: Child states: " He was HEB about 30 minutes ago and someone called us and said that he was acting confused and disoriented so I went and got him." Reports that pt was found slow to respond and w/ slurred speech, pt oriented to person and place but appears drowsy and slow to respond, slurred speech noted, BGL 85. Transition of care: patient was not received from another setting of care. Onset of symptoms was September 20, 2018. Risk Assessment: Do you want to hurt yourself or someone else? Patient reports no desire to harm self or others. Care prior to arrival: None. 12:50 Method Of Arrival: Wheelchair 12:50 Acuity: BENNIE 2 12:50 Initial Sepsis Screen: Does the patient meet any 2 criteria? Altered Mental Status. No. sv Patient's initial sepsis screen is negative. Does the patient have a suspected source of infection? No. Patient's initial sepsis screen is negative. Historical: - Allergies: 12:55 No Known Allergies; ph - Home Meds: 13:22 Xanax 1 mg Oral tab twice a day [Active]; amlodipine-benazepril 10-20 mg oral cap 1 cap sv once daily [Active]; Flexeril 10 mg Oral tab 1 tab 2 times per day [Active]; anastrozole 1 mg oral tab 1 tab once daily [Active]; Ciprodex 0.3-0.1 % otic drps [Active]; vitamin b12 1000 mcg IM weekly [Active]; dicyclomine 20 mg Oral tab [Active]; Lexapro 20 mg Oral tab 1 tab once daily [Active]; dilaudid 4 mg TID [Active]; Ibuprofen Oral 3 times per day [Active]; meclizine 25 mg Oral tab 1 tab 3 times per day [Active]; Reglan 10 mg Oral tab [Active]; ProAir HFA inhalation inhalation [Active]; testosterone 200 mg IM weekly [Active]; - PMHx: 12:55 Anxiety; COPD; Depression; Hypertension; Sleep Apnea; ulcerative colitis; ph 13:22 low back pain; Psoriasis; sv - PSHx: 12:55 Appendectomy; ph - Immunization history:: Adult Immunizations unknown. - Social history:: Smoking status: unknown. - Ebola Screening: : Unable to complete screening because. Screenin:15 Abuse screen: Denies threats or abuse. Denies injuries from another. Nutritional sv screening: No deficits noted. Tuberculosis screening: No symptoms or risk factors identified. Fall Risk None identified. Assessment: 12:50 Reassessment: Dr Santiago at bedside to assess pt. ph 12:50 Reassessment: Code Stroke called. sv 12:50 General: Appears distressed, well developed, Behavior is uncooperative, unresponsive. sv Pain: Unable to use pain scale. FLACC scale score is 0 out of 10. Neuro: Level of Consciousness is lethargic, obtunded, unresponsive, Oriented to none. Respiratory: Respiratory effort is even, unlabored, Respiratory pattern is regular, symmetrical. Derm: Skin is normal. 12:54 Reassessment: Pt taken to CT. ph 13:50 Reassessment: Patient and/or family updated on plan of care and expected duration. Pain sv level reassessed. Pt more awake and able to answer questions appropriately. Family remains at the bedside. 14:15 Reassessment: Patient appears in no apparent distress at this time. Patient and/or sv family updated on plan of care and expected duration. Pain level reassessed. Patient is alert, oriented x 3, equal unlabored respirations, skin warm/dry/pink. Patient states symptoms have improved. 14:47 Reassessment: Pt ambulated in the hallway to the nurses station with standby assist. Pt sv able to answer questions appropriately. Family remains at the bedside. 15:03 Reassessment: Patient appears in no apparent distress at this time. Patient and/or sv family updated on plan of care and expected duration. Pain level reassessed. Patient is alert, oriented x 3, equal unlabored respirations, skin warm/dry/pink. Patient states symptoms have improved. Vital Signs: 12:55 BP 99 / 46; Pulse 73; Resp 14; Temp 97.4(TE); Pulse Ox 88% on R/A; Weight 91.63 kg; ph 13:11 BP 104 / 56; Pulse 80; Resp 23; Pulse Ox 97% on 2 lpm NC; sv 13:47 BP 110 / 55; Pulse 80; Resp 24; Pulse Ox 98% on 2 lpm NC; sv 15:00 BP 111 / 58; Pulse 82; Resp 16; Pulse Ox 99% on R/A; sv [place] Coma Score: 12:50 Eye Response: to pain(2). Verbal Response: inappropriate words(3). Motor Response: sv withdraws from pain(4). Total: 9. 15:00 Eye Response: spontaneous(4). Verbal Response: oriented(5). Motor Response: obeys sv commands(6). Total: 15. ED Course: 12:39 Patient arrived in ED. as 12:40 Tammi Multani DO is Private Physician. as 12:41 ED physician to see patient. sv 12:43 Zaid Santiago MD is Attending Physician. kdr 12:50 Patient has correct armband on for positive identification. Placed in gown. Bed in low sv position. Call light in reach. Side rails up X2. Adult w/ patient. panel monitor on. Pulse ox on. NIBP on. Head of bed elevated. 12:53 Patsy Gasca, RN is Primary Nurse. sv 12:[address] via stretcher. sv 12:55 Triage completed. ph 12:56 Arm band placed on Patient placed in an exam room, on a stretcher, on oxygen, on ph cardiac monitor technician, on pulse oximetry. 13:00 Initial lab(s) drawn, by mo, sent to lab. Inserted saline lock: 18 gauge in right sv antecubital area, using aseptic technique. Blood collected. Flushed right antecubital with 5 ml normal saline. 13:10 X-ray(s) taken. sv 13:11 CT Stroke Brain w/o Contrast In Process Unspecified. EDMS 13:12 Stroke CXR 1 View Sent. sv 13:14 EKG done, by technology administrator. reviewed by Zaid Santiago MD. tc 13:26 Stroke CXR 1 View In Process Unspecified. EDMS 14:45 Tammi Multani DO is Referral Physician. kdr 14:48 No provider procedures requiring assistance completed. IV discontinued, intact, sv bleeding controlled, No redness/swelling at site. Pressure dressing applied. Administered Medications: 13:08 Drug: NARcan 0.2 mg Route: IVP; Site: right antecubital; sg 13:30 Follow up: Response: No adverse reaction; No change in condition sv 13:31 Drug: NARcan 0.2 mg Route: IVP; Site: right antecubital; sv 13:40 Follow up: Response: No adverse reaction; Pt more awake and able to answer questions. sv 13:40 Drug: Romazicon 0.2 mg Route: IVP; Site: right antecubital; sv 13:50 Follow up: Response: No adverse reaction; Marked relief of symptoms sv Point of Care Testing: Blood Glucose: 12:48 Blood Glucose: 85 mg/dL; ph Ranges: Intake: Outcome: 14:46 Discharge ordered by . kdr 15:03 Patient left the ED. sv 15:03 Discharged to home via wheelchair, with family. sv 15:03 Condition: stable 15:03 Discharge instructions given to patient, family, Instructed on discharge instructions, follow up and referral plans. Demonstrated understanding of instructions, follow-up care. Signatures: Dispatcher [employer] Patsy Cerna RN RN sv Jeremie Velasco RN RN sg Zaid Santiago MD MD kdr Martinez, Amelia as Jacey Wilson, president [employer] EKG Ttc Vannesa Gee RN RN ph Corrections: (The following items were deleted from the chart) 18:44 12:50 Initial Sepsis Screen: Does the patient meet any 2 criteria? No. Patient's sv initial sepsis screen is negative. Does the patient have a suspected source of infection? No. Patient's initial sepsis screen is negative. sv
--- NOTE | 2018-09-20 14:47 | EKG ---
Test Date: 2018-09-20 Test Time: 13:09:57 Clinical Associate: VANGIE MEASUREMENT RESULTS: Intervals: Rate: 74 GA: 282 QRSD: 98 QT: 398 QTc: 441 [place]: P: 18 GA: 282 QRS: -33 T: 36 INTERPRETIVE STATEMENTS: Sinus rhythm with 1st degree AV block Left axis deviation Incomplete right bundle branch block Minimal voltage criteria for LVH, may be normal variant Abnormal ECG Compared to ECG 08/01/2018 18:24:37 Left-axis deviation now present Incomplete right bundle-branch block now present Sinus tachycardia no longer present Electronically Signed On 09-20-18 14:46:40 CDT by Blaze Vega
--- NOTE | 2018-09-20 14:47 | EDPHYS ---
Physician Documentation [facility] Name: Ihsan Alvares Age: 63 yrs Sex: Male : 1955 Arrival Date: 09/20/2018 Time: 12:39 Bed 6 Private MD: Tammi Multani H ED Physician Zaid Santiago HPI: 09/20 13:27 This 63 yrs old Male presents to ER via Wheelchair with complaints of kdr Disoriented, AMS. 13:27 The patient presents with decreased mental status, decreased responsiveness. Onset: The kdr symptoms/episode began/occurred suddenly, just prior to arrival. Possible causes: CVA or TIA, sepsis, Has been seen for recent URI. Associated signs and symptoms: Pertinent positives: confusion. 14:38 Current symptoms: In the emergency department the patient's symptoms are unchanged from kdr the initial presentation. Patient's baseline: Neuro: alert and fully oriented, Motor: no deficits, Ambulation: walks without assistance, Speech: normal for age, The patient has a previous history of Back pain, anxiety, depression . The patient has experienced similar episodes in the past, a few times. Historical: - Allergies: 12:55 No Known Allergies; ph - Home Meds: 13:22 Xanax 1 mg Oral tab twice a day [Active]; amlodipine-benazepril 10-20 mg oral cap 1 cap sv once daily [Active]; Flexeril 10 mg Oral tab 1 tab 2 times per day [Active]; anastrozole 1 mg oral tab 1 tab once daily [Active]; Ciprodex 0.3-0.1 % otic drps [Active]; vitamin b12 1000 mcg IM weekly [Active]; dicyclomine 20 mg Oral tab [Active]; Lexapro 20 mg Oral tab 1 tab once daily [Active]; dilaudid 4 mg TID [Active]; Ibuprofen Oral 3 times per day [Active]; meclizine 25 mg Oral tab 1 tab 3 times per day [Active]; Reglan 10 mg Oral tab [Active]; ProAir HFA inhalation inhalation [Active]; testosterone 200 mg IM weekly [Active]; - PMHx: 12:55 Anxiety; COPD; Depression; Hypertension; Sleep Apnea; ulcerative colitis; ph 13:22 low back pain; Psoriasis; sv - PSHx: 12:55 Appendectomy; ph - Immunization history:: Adult Immunizations unknown. - Social history:: Smoking status: unknown. - Ebola Screening: : Unable to complete screening because. ROS: 14:38 Constitutional: Negative for fever, chills, and weight loss, Eyes: Negative for injury, kdr pain, redness, and discharge, ENT: Negative for injury, pain, and discharge, Neck: Negative for injury, pain, and swelling, Cardiovascular: Negative for chest pain, palpitations, and edema, Respiratory: Negative for shortness of breath, cough, wheezing, and pleuritic chest pain, Abdomen/GI: Negative for abdominal pain, nausea, vomiting, diarrhea, and constipation, Back: Negative for injury and pain, : Negative for injury, bleeding, discharge, and swelling, MS/Extremity: Negative for injury and deformity, Skin: Negative for injury, rash, and discoloration, Psych: Negative for depression, anxiety, suicide ideation, homicidal ideation, and hallucinations, Allergy/Immunology: Negative for hives, rash, and allergies, Endocrine: Negative for neck swelling, polydipsia, polyuria, polyphagia, and marked weight changes, Hematologic/Lymphatic: Negative for swollen nodes, abnormal bleeding, and unusual bruising. 14:38 Neuro: Positive for altered mental status, weakness, Negative for loss of consciousness, numbness, seizure activity, syncope. Exam: 14:38 Constitutional: This is a well developed, well nourished patient who is very somnolent kdr but in no acute distress. He responds slowly to persistent coaching Head/Face: Normocephalic, atraumatic. Eyes: Pupils equal round and reactive to light, extra-ocular motions intact. Lids and lashes normal. Conjunctiva and sclera are non-icteric and not injected. Cornea within normal limits. Periorbital areas with no swelling, redness, or edema. Neck: Trachea midline, no thyromegaly or masses palpated, and no cervical lymphadenopathy. Supple, full range of motion without nuchal rigidity, or vertebral point tenderness. No Meningismus. Chest/axilla: Normal chest wall appearance and motion. Nontender with no deformity. No lesions are appreciated. Cardiovascular: Regular rate and rhythm with a normal S1 and S2. No gallops, murmurs, or rubs. Normal PMI, no JVD. No pulse deficits. Respiratory: Lungs have equal breath sounds bilaterally, clear to auscultation and percussion. No rales, rhonchi or wheezes noted. No increased work of breathing, no retractions or nasal flaring. Abdomen/GI: Soft, non-tender, with normal bowel sounds. No distension or tympany. No guarding or rebound. No evidence of tenderness throughout. Back: No spinal tenderness. No costovertebral tenderness. Full range of motion. MS/ Extremity: Pulses equal, no cyanosis. Neurovascular intact. Full, normal range of motion. Psych: Awake, alert, with orientation to person, place and time. Behavior, mood, and affect are within normal limits. 14:38 Neuro: Orientation: to person, place, Mentation: able to follow commands, inappropriate for stated age, slow to respond, confused, sleepy, somnolent, Cranial nerves: is grossly normal based on the patient's age, Cerebellar function: unable to test, The patient is too sleepy to participate actively in the exam and yawns frequently. Vital Signs: 12:55 BP 99 / 46; Pulse 73; Resp 14; Temp 97.4(TE); Pulse Ox 88% on R/A; Weight 91.63 kg; ph 13:11 BP 104 / 56; Pulse 80; Resp 23; Pulse Ox 97% on 2 lpm NC; sv 13:47 BP 110 / 55; Pulse 80; Resp 24; Pulse Ox 98% on 2 lpm NC; sv 15:00 BP 111 / 58; Pulse 82; Resp 16; Pulse Ox 99% on R/A; sv Arnoldo Coma Score: 12:50 Eye Response: to pain(2). Verbal Response: inappropriate words(3). Motor Response: sv withdraws from pain(4). Total: 9. 15:00 Eye Response: spontaneous(4). Verbal Response: oriented(5). Motor Response: obeys sv commands(6). Total: 15. MDM: 13:34 ED course: The patient had driven himself to the store where he apparently had the kdr onset of the AMS. Daughter was called and she went to the store and picked him up and brought him to the ED. Daughter states that he would fall asleep in the care if not talking to her. They have not seen this before . He takes a large number of pain and anti-anxiety medications at home on a daily basis. He is able to follow commands though very slowly. 13:42 ED course: With the administration of Narcan and Romazicon, the patient was much kdr improved and without apparent neurological deficits. Stroke protocol canceled. Most likely over sedation from Dilaudid and Xanax. 14:38 Data reviewed: vital signs, nurses notes, lab test result(s), radiologic studies. kdr Counseling: I had a detailed discussion with the patient and/or guardian regarding: the historical points, exam findings, and any diagnostic results supporting the discharge/admit diagnosis, lab results, radiology results, the need for outpatient follow up. 14:46 Patient medically screened. kdr 09/20 12:55 Order name: Basic Metabolic Panel; Complete Time: 14: kdr 09/20 12:55 Order name: CBC with Diff; Complete Time: 14: kdr 09/20 12:55 Order name: Protime (+inr); Complete Time: 14: kdr 09/20 12:55 Order name: Ptt, Activated; Complete Time: 14: kdr 09/20 12:55 Order name: Ckmb; Complete Time: 14: kdr 09/20 12:54 Order name: CT Stroke Brain w/o Contrast; Complete Time: 14: sv 09/20 12:55 Order name: CPK; Complete Time: 14: kdr 09/20 12:55 Order name: Lactate; Complete Time: 14: kdr 09/20 12:55 Order name: LFT's; Complete Time: 14: kdr 09/20 12:55 Order name: Lipase; Complete Time: 14: kdr 09/20 12:55 Order name: Procalcitonin; Complete Time: 14: kdr 09/20 12:55 Order name: Troponin (emerg Dept Use Only); Complete Time: 14: kdr 09/20 12:55 Order name: Stroke CXR 1 View; Complete Time: 14: kdr 09/20 12:55 Order name: EKG; Complete Time: 12:58 kdr 09/20 12:55 Order name: Accucheck; Complete Time: 13: kdr 09/20 12:55 Order name: Cardiac monitoring; Complete Time: 13: kdr 09/20 12:55 Order name: EKG - Nurse/Tech; Complete Time: 13: kdr 09/20 12:55 Order name: IV Saline Lock; Complete Time: 13: [facility] 09/20 12:55 Order name: Labs collected and sent; Complete Time: 13: [facility] 09/20 12:55 Order name: NPO; Complete Time: 13: [facility] 09/20 12:55 Order name: O2 Per Protocol; Complete Time: 13: [facility] 09/20 12:55 Order name: O2 Sat Monitoring; Complete Time: 13: [facility] 09/20 12:55 Order name: IV Saline Lock - Large Bore; Complete Time: 13:10 kdr Administered Medications: 13:08 Drug: NARcan 0.2 mg Route: IVP; Site: right antecubital; sg 13:30 Follow up: Response: No adverse reaction; No change in condition sv 13:31 Drug: NARcan 0.2 mg Route: IVP; Site: right antecubital; sv 13:40 Follow up: Response: No adverse reaction; Pt more awake and able to answer questions. sv 13:40 Drug: Romazicon 0.2 mg Route: IVP; Site: right antecubital; sv 13:50 Follow up: Response: No adverse reaction; Marked relief of symptoms sv Point of Care Testing: Blood Glucose: 12:48 Blood Glucose: 85 mg/dL; ph Ranges: Critical Glucose Levels:Adult <50 mg/dl or >400 mg/dl <40 mg/dl or >180 mg/dl Disposition: 09/20/18 14:46 Discharged to Home. Impression: Accidental medication overdose (narcotic and benzodiazepine). - Condition is Stable. - Discharge Instructions: Substance Use Disorder. - Medication Reconciliation Form, Thank You Letter form. - Follow up: Tammi Multani DO; When: 2 - 3 days; Reason: If symptoms return, Further diagnostic work-up, Recheck today's complaints, Continuance of care, Re-evaluation by your physician. - Problem is new. - Symptoms have improved. Signatures: Dispatcher [employer] Patsy Cerna RN RN sv Jermeie Velasco RN RN sg Zaid Santiago MD MD kdr Vannesa Gee RN RN ph Corrections: (The following items were deleted from the chart) 15:03 14:46 09/20/2018 14:46 Discharged to Home. Impression: Accidental medication overdose sv (narcotic and benzodiazepine). Condition is Stable. Forms are Medication Reconciliation Form, Thank You Letter, Antibiotic Education, Prescription Opioid Use. Follow up: Tammi Multani; When: 2 - 3 days; Reason: If symptoms return, Further diagnostic work-up, Recheck today's complaints, Continuance of care, Re-evaluation by your physician. Problem is new. Symptoms have improved. kdr
[2018-09-20 15:27] VITALS: TEMP 97.4
[2018-09-20 15:28] VITALS: BP 110/55; O2SAT 98
== END 2018-09-20 15:03 | disposition home or self-care (01) ==
LOC: ER 12:38
DX: T40.601A Poisoning by unspecified narcotics, accidental (unintentional), initial encounter (principal); T42.4X1A Poisoning by benzodiazepines, accidental (unintentional), initial encounter; I10 Essential (primary) hypertension; F41.9 Anxiety disorder, unspecified; F32.9 Major depressive disorder, single episode, unspecified; J44.9 Chronic obstructive pulmonary disease, unspecified
CPT/HCPCS: 93005; 85025; 80048; 36415; 82550; 85610; 82962; 80076; 83605; 85730; 84484; 82553; 83690; 84145; 70450; 71045; 96375; 96374; 99291; 99292; J2310

== ENCOUNTER 2018-12-04 23:23 | Inpatient (IN) | payer OTHER, BC ==
[2018-12-04] MEDS ORDERED: ACETAMINOPHEN 325 MG TABLET ONE (23:50)
[2018-12-04] MEDS ORDERED: LEVALBUTEROL 1.25 MG/3 ML NEB ONE (23:50)
[2018-12-04] MEDS ORDERED: METHYLPREDNISOLONE 125 MG INJ ONE (23:50)
[2018-12-04] MEDS ORDERED: NA CHLORIDE 0.9% 1,000 ML ONE (23:50)
[2018-12-05 00:23] LABS: Absolute Lymphocytes (CBC) 1.7 K/uL (0.7-4.9); Basophils % 0.3 % (0-1.3); Hematocrit 47.9 % (39.6-49.0); Lymphocytes % 8.8 % (15.3-44.8); RBC Red Blood Cell Count 5.37 M/uL (4.33-5.43)
[2018-12-05 00:41] LABS: BUN Blood Urea Nitrogen 20 mg/dL (7-18); Bicarbonate 27 mmol/L (21-32); Glucose Level 102 mg/dL (74-106); NT PRO-BNP 403 pg/mL (<125); Potassium 3.8 mmol/L (3.5-5.1); Sodium Level 138 mmol/L (136-145)
--- NOTE | 2018-12-05 01:21 | ER ---
Nurse's Notes [facility] Name: Ihsan Alvares Age: 63 yrs Sex: Male : 1955 Arrival Date: 12/04/2018 Time: 23:31 Bed 8 Private MD: Diagnosis: Pneumonia;Chronic obstructive pulmonary disease with acute lower respiratory infection;Chronic obstructive pulmonary disease with (acute) exacerbation;Failed outpatient therapy Presentation: 12/04 23:33 Presenting complaint: Patient states: cough \T\ SOB for past couple days. Was seen by PCP aa1 yesterday and had negative flu \T\ strep test and was given a steroid injection and started on a z-pack but reports today he is feeling worse. Transition of care: patient was not received from another setting of care. Onset of symptoms was December 02, 2018. Risk Assessment: Do you want to hurt yourself or someone else? Patient reports no desire to harm self or others. Initial Sepsis Screen: Does the patient meet any 2 criteria? HR > 90 bpm. Does the patient have a suspected source of infection? Yes: Productive cough/pneumonia. Care prior to arrival: Medication(s) given: Albuterol Neb x 1, Atrovent Neb x 1, Med neb given. 23:33 Method Of Arrival: EMS: [facility] aa1 23:33 Acuity: BENNIE 3 aa1 Historical: - Allergies: 23:41 No Known Allergies; aa1 - Home Meds: 23:41 amlodipine-benazepril 10-20 mg Oral cap 1 cap once daily [Active]; anastrozole 1 mg aa1 Oral tab 1 tab once daily [Active]; Ciprodex 0.3-0.1 % Otic drps [Active]; dicyclomine 20 mg Oral tab [Active]; dilaudid 4 mg TID [Active]; Flexeril 10 mg Oral tab 1 tab 2 times per day [Active]; Ibuprofen Oral 3 times per day [Active]; Lexapro 20 mg Oral tab 1 tab once daily [Active]; meclizine 25 mg Oral tab 1 tab 3 times per day [Active]; ProAir HFA inhalation [Active]; Reglan 10 mg Oral tab [Active]; testosterone 200 mg IM weekly [Active]; vitamin b12 1000 mcg IM weekly [Active]; Xanax 1 mg Oral tab twice a day [Active]; - PMHx: 23:41 Anxiety; COPD; Depression; Hypertension; low back pain; psoriasis; Sleep Apnea; aa1 ulcerative colitis; Meniere's disease; - PSHx: 23:41 Appendectomy; aa1 - Immunization history:: Flu vaccine is up to date. - Social history:: Smoking status: Patient/guardian denies using tobacco. - Ebola Screening: : Patient denies exposure to infectious person Patient denies travel to an Ebola-affected area in the 21 days before illness onset. - Family history:: not pertinent. - Hospitalizations: : No recent hospitalization is reported. Screenin:35 Abuse screen: Denies threats or abuse. Denies injuries from another. Nutritional aa1 screening: No deficits noted. Tuberculosis screening: No symptoms or risk factors identified. Fall Risk None identified. Assessment: 23:35 General: Appears in no apparent distress. comfortable, Behavior is calm, cooperative, aa1 appropriate for age. Pain: Complains of pain in chest Aggravated by cough. Neuro: Level of Consciousness is awake, alert, obeys commands, Oriented to person, place, time, situation, Moves all extremities. Full function Speech is normal. Cardiovascular: Heart tones S1 S2 present Rhythm is regular. Respiratory: Reports shortness of breath at rest cough that is productive, pain with cough Airway is patent Respiratory effort is even, unlabored, Respiratory pattern is regular, symmetrical, Breath sounds with wheezes bilaterally. the patient has moderate shortness of breath. GI: No signs and/or symptoms were reported involving the gastrointestinal system. : No signs and/or symptoms were reported regarding the genitourinary system. EENT: No signs and/or symptoms were reported regarding the EENT system. Derm: Skin is intact, is healthy with good turgor, Skin is pink, warm \T\ dry. Musculoskeletal: Circulation, motion, and sensation intact. Capillary refill < 3 seconds. 12/05 00:30 Reassessment: Patient appears in no apparent distress at this time. Patient and/or aa1 family updated on plan of care and expected duration. Pain level reassessed. Patient is alert, oriented x 3, equal unlabored respirations, skin warm/dry/pink. Awaiting lab results Patient states feeling better. Patient states symptoms have improved. 01:28 Reassessment: Patient appears in no apparent distress at this time. Patient and/or aa1 family updated on plan of care and expected duration. Pain level reassessed. Patient is alert, oriented x 3, equal unlabored respirations, skin warm/dry/pink. Awaiting bed assignment. 03:18 Reassessment: Patient appears in no apparent distress at this time. Patient and/or aa1 family updated on plan of care and expected duration. Pain level reassessed. Patient is alert, oriented x 3, equal unlabored respirations, skin warm/dry/pink. Attempted to call report to 4th floor, was told nurse will call back shortly. 03:25 Reassessment: report given to IMMANUEL Grigsby on 4th floor. aa1 Vital Signs: 12/04 23:41 BP 137 / 81; Pulse 115; Resp 20; Temp 99.4; Pulse Ox 99% on R/A; Weight 97.52 kg; aa1 Height 5 ft. 9 in. (175.26 cm); Pain 0/10; 12/05 00:30 BP 137 / 53; Pulse 111; Resp 22; Pulse Ox 94% on R/A; aa1 01:26 BP 139 / 55; Pulse 107; Resp 20; Temp 99.7(O); Pulse Ox 93% on R/A; Pain 0/10; aa1 03:00 BP 140 / 66; Pulse 99; Resp 20; Temp 99.0; Pulse Ox 93% on R/A; Pain 0/10; aa1 12/04 23:41 Body Mass Index 31.75 (97.52 kg, 175.26 cm) aa1 ED Course: 12/04 23:31 Patient arrived in ED. rn 23:31 Jorge A Balbuena MD is Attending Physician. rn 23:35 Patient has correct armband on for positive identification. Placed in gown. Bed in low aa1 position. Call light in reach. Pulse ox on. NIBP on. 23:36 Triage completed. aa1 23:41 Arm band placed on right wrist. aa1 23:54 Hannah Ballesteros RN is Primary Nurse. aa1 12/05 00:05 Inserted saline lock: 20 gauge in right antecubital area, using aseptic technique. jd3 Blood collected. 00:42 XRAY CXR (1 view) In Process Unspecified. EDMS 01:19 Emily Sanchez MD is Hospitalizing Provider. rn 03:16 No provider procedures requiring assistance completed. Patient admitted, IV remains in aa1 place. Administered Medications: 12/04 23:54 Drug: Xopenex 1.25 mg Route: Inhalation; aa1 23:54 Drug: Tylenol 650 mg Route: PO; aa1 12/05 01:52 Follow up: Response: No adverse reaction; Temperature is unchanged aa1 00:04 Drug: SOLU-Medrol 125 mg Route: IVP; Site: right antecubital; aa1 01:04 Follow up: Response: No adverse reaction; Marked relief of symptoms aa1 00:05 Drug: NS 0.9% 1000 ml Route: IV; Rate: 1000 ml; Site: right antecubital; aa1 01:00 Follow up: IV Status: Completed infusion; IV Intake: 1000ml aa1 01:50 Drug: AZITHromycin 500 mg Route: IVPB; Infused Over: 1 hrs; Site: right antecubital; aa1 02:50 Follow up: IV Status: Completed infusion; IV Intake: 250ml aa1 01:50 Drug: NS 0.9% 500 ml Route: IV; Rate: bolus; Site: right antecubital; aa1 02:20 Follow up: IV Status: Completed infusion; IV Intake: 500ml aa1 01:51 Not Given (Other Intervention Used): Rocephin - (cefTRIAXone) 1 grams IVPB once over 30 aa1 mins; (mix in 50 mL NS) 01:51 Drug: Rocephin 1 grams Route: IV; Rate: calculated rate; Site: right antecubital; aa1 01:56 Follow up: IV Status: Completed infusion; IV Intake: 10ml aa1 Intake: 01:00 IV: 1000ml; Total: 1000ml. aa1 01:56 IV: 10ml; Total: 1010ml. aa1 02:20 IV: 500ml; Total: 1510ml. aa1 02:50 IV: 250ml; Total: 1760ml. aa1 Outcome: 01:20 Decision to Hospitalize by Provider. rn 03:28 Admitted to Tele accompanied by tech, via wheelchair, room 419, with chart, Report aa1 called to IMMANUEL Grigsby 03:28 Condition: stable 03:28 Instructed on the need for admit, Demonstrated understanding of instructions. 03:37 Patient left the ED. aa1 Signatures: Dispatcher [employer] EDMS Autenivan, Hannah, RN RN aa1 Jorge A Balbuena MD MD rn Davies, Jonathon, RN RN jd3 Corrections: (The following items were deleted from the chart) 01:53 01:26 BP 139 / 55; Pulse 107bpm; Resp 20bpm; Pulse Ox 93% RA; aa1 aa1
--- NOTE | 2018-12-05 01:22 | EDPHYS ---
Physician Documentation [facility] Name: Ihsan Alvares Age: 63 yrs Sex: Male : 1955 Arrival Date: 12/04/2018 Time: 23:31 Bed 8 Private MD: ED Physician Jorge A Balbuena HPI: 12/05 00:45 This 63 yrs old Male presents to ER via EMS with complaints of sob/cough. rn 00:45 The patient has shortness of breath at rest, with light activity. Onset: The rn symptoms/episode began/occurred 2 day(s) ago. Duration: The symptoms are intermittent. The patient's shortness of breath is aggravated by exertion. Associated signs and symptoms: Pertinent positives: productive cough, fever, Pertinent negatives: hemoptysis, loss of consciousness. Severity of symptoms: At their worst the symptoms were moderate in the emergency department the symptoms are unchanged. The patient has experienced similar episodes in the past. Reports cough for 2 days, seen by pcp yesterday, given zithromax, + fever and chills, woke up sob tonight, "felt like was going to ", had call 911. States feels better after breathing treatments. . Historical: - Allergies: 12/04 23:41 No Known Allergies; aa1 - Home Meds: 23:41 amlodipine-benazepril 10-20 mg Oral cap 1 cap once daily [Active]; anastrozole 1 mg aa1 Oral tab 1 tab once daily [Active]; Ciprodex 0.3-0.1 % Otic drps [Active]; dicyclomine 20 mg Oral tab [Active]; dilaudid 4 mg TID [Active]; Flexeril 10 mg Oral tab 1 tab 2 times per day [Active]; Ibuprofen Oral 3 times per day [Active]; Lexapro 20 mg Oral tab 1 tab once daily [Active]; meclizine 25 mg Oral tab 1 tab 3 times per day [Active]; ProAir HFA inhalation [Active]; Reglan 10 mg Oral tab [Active]; testosterone 200 mg IM weekly [Active]; vitamin b12 1000 mcg IM weekly [Active]; Xanax 1 mg Oral tab twice a day [Active]; - PMHx: 23:41 Anxiety; COPD; Depression; Hypertension; low back pain; psoriasis; Sleep Apnea; aa1 ulcerative colitis; Meniere's disease; - PSHx: 23:41 Appendectomy; aa1 - Immunization history:: Flu vaccine is up to date. - Social history:: Smoking status: Patient/guardian denies using tobacco. - Ebola Screening: : Patient denies exposure to infectious person Patient denies travel to an Ebola-affected area in the 21 days before illness onset. - Family history:: not pertinent. - Hospitalizations: : No recent hospitalization is reported. ROS: 12/05 00:45 Constitutional: + fever and chills Eyes: Negative for injury, pain, redness, and lpn rn hospice, Neck: Negative for injury, pain, and swelling, Cardiovascular: Negative for chest pain, palpitations, and edema, Respiratory: Negative for pleuritic chest pain, Abdomen/GI: Negative for abdominal pain, nausea, vomiting, diarrhea, and constipation, MS/Extremity: Negative for injury and deformity, Skin: Negative for injury, rash, and discoloration, Neuro: Negative for headache, numbness, tingling, and seizure. Exam: 00:45 Constitutional: This is a well developed, well nourished patient who is awake, alert rn Head/Face: Normocephalic, atraumatic. Eyes: Pupils equal round and reactive to light, extra-ocular motions intact. Lids and lashes normal. Conjunctiva and sclera are non-icteric and not injected. Cornea within normal limits. Periorbital areas with no swelling, redness, or edema. ENT: dry MM, no stridor Cardiovascular: Tachycardic, regular, no murmur Respiratory: + bilateral coarse breath sounds, faint exp wheezing, no retractions, + moderate tachypnea. Abdomen/GI: soft, non-tender MS/ Extremity: Pulses equal, no cyanosis. Neurovascular intact. Full, normal range of motion. Equal circumference. Neuro: Awake and alert, GCS 15, oriented to person, place, time, and situation. Cranial nerves II-XII grossly intact. Motor strength 5/5 in all extremities. Sensory grossly intact. Vital Signs: 12/04 23:41 BP 137 / 81; Pulse 115; Resp 20; Temp 99.4; Pulse Ox 99% on R/A; Weight 97.52 kg; aa1 Height 5 ft. 9 in. (175.26 cm); Pain 0/10; 12/05 00:30 BP 137 / 53; Pulse 111; Resp 22; Pulse Ox 94% on R/A; aa1 01:26 BP 139 / 55; Pulse 107; Resp 20; Temp 99.7(O); Pulse Ox 93% on R/A; Pain 0/10; aa1 03:00 BP 140 / 66; Pulse 99; Resp 20; Temp 99.0; Pulse Ox 93% on R/A; Pain 0/10; aa1 12/04 23:41 Body Mass Index 31.75 (97.52 kg, 175.26 cm) aa1 MDM: 12/04 23:31 Patient medically screened. rn 12/05 01:16 Differential diagnosis: Bronchitis Chronic Obstructive Pulmonary Disease pneumonia, rn reactive airway disease, Sepsis. Data reviewed: vital signs, nurses notes, lab test result(s), EKG, radiologic studies, plain films, and as a result, I will admit patient. Test interpretation: by ED physician or midlevel provider: plain radiologic studies, CXR with left lower lobe infiltrate. Counseling: I had a detailed discussion with the patient and/or guardian regarding: the historical points, exam findings, and any diagnostic results supporting the discharge/admit diagnosis, lab results, radiology results, the need for further work-up and treatment in the hospital. Response to treatment: the patient's symptoms have mildly improved after treatment, and as a result, I will admit patient. Admission orders: after a detailed discussion of the patient's condition and case, the admit orders are written by me. ED course: Pt with LLL pneumonia, still tachypneic and tachycardic, will admit for pneumonia and COPD exacerbation. . 12/04 23:33 Order name: Blood Culture Adult (2) rn 12/04 23:33 Order name: BMP rn 12/04 23:33 Order name: CBC with Diff rn 12/04 23:33 Order name: NT PRO-BNP rn 12/04 23:33 Order name: Procalcitonin rn 12/04 23:33 Order name: Lactate rn 12/04 23:33 Order name: Flu rn 12/05 02:11 Order name: Basic Metabolic Panel EDAL 12/05 02:11 Order name: CBC with Automated Diff EDAL 12/05 02:11 Order name: Lactate EDMS 12/05 02:11 Order name: NT PRO-BNP [facility] 12/05 02:11 Order name: Lipid Profile [facility] 12/05 02:11 Order name: Lipid Profile [facility] 12/05 02:11 Order name: Troponin I [facility] 12/04 23:33 Order name: XRAY CXR (1 view) rn 12/04 23:33 Order name: EKG; Complete Time: 23:34 rn 12/04 23:33 Order name: Cardiac monitoring; Complete Time: 00:17 rn 12/04 23:33 Order name: EKG - Nurse/Tech; Complete Time: 00:17 rn 12/04 23:33 Order name: IV Saline Lock; Complete Time: 00:17 rn 12/04 23:33 Order name: Labs collected and sent; Complete Time: 00:17 rn 12/05 02:11 Order name: Regular [facility] 12/05 02:11 Order name: Troponin I [facility] 12/04 23:33 Order name: O2 Per Protocol; Complete Time: 23:45 rn 12/04 23:33 Order name: O2 Sat Monitoring; Complete Time: 23:45 rn Administered Medications: 12/04 23:54 Drug: Xopenex 1.25 mg Route: Inhalation; aa1 23:54 Drug: Tylenol 650 mg Route: PO; aa1 12/05 01:52 Follow up: Response: No adverse reaction; Temperature is unchanged aa1 00:04 Drug: SOLU-Medrol 125 mg Route: IVP; Site: right antecubital; aa1 01:04 Follow up: Response: No adverse reaction; Marked relief of symptoms aa1 00:05 Drug: NS 0.9% 1000 ml Route: IV; Rate: 1000 ml; Site: right antecubital; aa1 01:00 Follow up: IV Status: Completed infusion; IV Intake: 1000ml aa1 01:50 Drug: AZITHromycin 500 mg Route: IVPB; Infused Over: 1 hrs; Site: right antecubital; aa1 02:50 Follow up: IV Status: Completed infusion; IV Intake: 250ml aa1 01:50 Drug: NS 0.9% 500 ml Route: IV; Rate: bolus; Site: right antecubital; aa1 02:20 Follow up: IV Status: Completed infusion; IV Intake: 500ml aa1 01:51 Not Given (Other Intervention Used): Rocephin - (cefTRIAXone) 1 grams IVPB once over 30 aa1 mins; (mix in 50 mL NS) 01:51 Drug: Rocephin 1 grams Route: IV; Rate: calculated rate; Site: right antecubital; aa1 01:56 Follow up: IV Status: Completed infusion; IV Intake: 10ml aa1 Disposition: 12/05/18 01:20 Hospitalization ordered by Emily Sanchez for Inpatient Admission. Preliminary diagnosis are Pneumonia, Chronic obstructive pulmonary disease with acute lower respiratory infection, Chronic obstructive pulmonary disease with (acute) exacerbation, Failed outpatient therapy. - Bed requested for Telemetry/MedSurg (Inpatient). - Status is Inpatient Admission. aa1 - Condition is Stable. - Problem is new. - Symptoms have improved. UTI on Admission? No Signatures: Dispatcher [employer] EDMS Hannah Ballesteros RN RN aa1 Jorge A Balbuena MD MD rn Garcia, Cindy, RN RN cg Corrections: (The following items were deleted from the chart) 02:34 01:20 Hospitalization Ordered by Emily Sanchez MD for Inpatient Admission. Preliminary cg diagnosis is Pneumonia; Chronic obstructive pulmonary disease with acute lower respiratory infection; Chronic obstructive pulmonary disease with (acute) exacerbation; Failed outpatient therapy. Bed requested for Telemetry/MedSurg (Inpatient). Status is Inpatient Admission. Condition is Stable. Problem is new. Symptoms have improved. UTI on Admission? No. rn 03:37 02:34 12/05/2018 01:20 Hospitalization Ordered by Emily Sanchez MD for Inpatient aa1 Admission. Preliminary diagnosis is Pneumonia; Chronic obstructive pulmonary disease with acute lower respiratory infection; Chronic obstructive pulmonary disease with (acute) exacerbation; Failed outpatient therapy. Bed requested for Telemetry/MedSurg (Inpatient). Status is Inpatient Admission. Condition is Stable. Problem is new. Symptoms have improved. UTI on Admission? No. cg
[2018-12-05] MEDS ORDERED: NA CHLORIDE 0.9% 500 ML ONE (01:40)
[2018-12-05] MEDS ORDERED: CEFTRIAXONE/SWI 1gm 1 GM/10 ML SYR ONE (01:40)
[2018-12-05] MEDS ORDERED: NA CHLORIDE 0.9% 250 ML ONE (01:40)
[2018-12-05] MEDS ORDERED: AZITHROMYCIN 500 MG INJ IVPB ONE (01:40)
[2018-12-05] MEDS ORDERED: ONDANSETRON 4 MG/2 ML VIAL IV PRN (02:05)
[2018-12-05] MEDS ORDERED: ACETAMINOPHEN 500 MG TAB PO PRN (02:05)
[2018-12-05] MEDS: NA CHLORIDE 0.9% 1,000 ML IV SCH ×2 (03:00→20:48)
[2018-12-05 03:46] VITALS: BMI 31.5
[2018-12-05 06:25] LABS: Absolute Lymphocytes (CBC) 0.6 K/uL (0.7-4.9); Hematocrit 44.1 % (39.6-49.0); Lymphocytes % 2.9 % (15.3-44.8); MPV 9.4 fL (7.6-11.3)
--- NOTE | 2018-12-05 06:40 | RAD REPORT ---
EXAM DESCRIPTION: RAD - Chest Single View - 12/05/2018 12:25 am CLINICAL HISTORY: Cough;Fever Chest pain. COMPARISON: Chest Single View dated 09/20/2018; Chest Pa And Lat (2 Views) dated 09/19/2018; Chest Pa And Lat (2 Views) dated 09/04/2018; Chest Single View dated 08/01/2018 FINDINGS: Portable technique limits examination quality. Prominent bilateral interstitial markings, greater on the left, suggesting reactive airway disease or bronchitis. Increased left basilar opacity could represent a superimposed developing pneumonia. The heart is normal in size. No displaced fractures.
[2018-12-05 06:41] LABS: BUN Blood Urea Nitrogen 18 mg/dL (7-18); Bicarbonate 24 mmol/L (21-32); Glucose Level 292 mg/dL (74-106); NT PRO-BNP 681 pg/mL (<125); Potassium 3.8 mmol/L (3.5-5.1); Sodium Level 141 mmol/L (136-145); Troponin I < 0.02 ng/mL (0.0-0.045)
[2018-12-05] MEDS: ALBUTEROL 2.5 MG/3 ML NEB SOL NEB SCH ×3 (07:15→20:00)
[2018-12-05] MEDS: IPRATROPIUM BROM 0.5MG/2.5ML NEB SCH ×3 (07:15→20:00)
[2018-12-05] MEDS: ENOXAPARIN 40 MG/0.4 ML SQ SCH (08:35)
[2018-12-05] MEDS ORDERED: Levofloxacin 750mg IV 750 MG/150 ML BAG IV SCH (09:00)
--- NOTE | 2018-12-05 09:22 | EKG ---
Test Date: 2018-12-05 Test Time: 00:16:28 Flight Simulator Teacher: TUNDE MEASUREMENT RESULTS: Intervals: Rate: 115 WA: 206 QRSD: 96 QT: 318 QTc: 439 [place]: P: 64 WA: 206 QRS: -44 T: 54 INTERPRETIVE STATEMENTS: Sinus tachycardia Left axis deviation Moderate voltage criteria for LVH, may be normal variant Abnormal ECG Compared to ECG 09/20/2018 13:09:57 Sinus rhythm no longer present First degree AV block no longer present Incomplete right bundle-branch block no longer present Electronically Signed On 12-05-18 09:21:06 CDT by Kevin Sanchez
[2018-12-05 11:53] LABS: Blood Morphology Comment NOT SEEN (NOT SEEN); Platelet Estimate ADEQ
--- NOTE | 2018-12-05 12:20 | P.CNS ---
Date of Consult: 12/05/18 Chief Complaint: Sore throat shortness of breath History of Present Illness: Patient is 63 years of age admitted with worsening dyspnea developed a sore throat. History of COPD patient uses pro air and Stiolto. Compliant with his medication he has had multiple flare ups Allergies No Known Allergies Allergy (Verified 12/05/18 03:47) Home Medications: ALPRAZolam [Xanax] 1 mg PO BID 12/05/18 Albuterol Sulfate [Proair Hfa] 8.5 gm IH Q4H PRN 12/05/18 Amlodipine Besylate/Benazepril [Lotrel 10-20 mg Capsule] 1 each PO DAILY Anastrozole [Arimidex] 1 mg PO DAILY 12/05/18 Benzonatate [Tessalon Perle] 200 mg PO TID 12/05/18 Cyanocobalamin (Vitamin B-12) [Cyanocobalamin Injection] 1,000 mcg IM SEECOM Cyclobenzaprine [Flexeril] 10 mg PO BID 12/05/18 Escitalopram [Lexapro*] 20 mg PO DAILY 12/05/18 Fluticasone/Umeclidin/Vilanter [Trelegy Ellipta 100-62.5-25] 1 each IH DAILY 30 Days blst.w.dev 12/05/18 Hydromorphone HCl [Dilaudid] 4 mg PO TID 12/05/18 Ibuprofen [Ibu] 800 mg PO TID 12/05/18 Meclizine HCl 25 mg PO TID 12/05/18 Mesalamine 2 tab PO BID 12/05/18 Methylpred Acet [Depo-Medrol] 80 mg IM DAILY 12/05/18 Metoclopramide HCl [Reglan] 10 mg PO DAILY 12/05/18 Omeprazole 20 mg PO DAILY 12/05/18 Testosterone Cypionate [Testone Cik] 200 mg IM SEECOM 12/05/18 Tiotropium Br/Olodaterol HCl [Stiolto Respimat Inhal [place]] 2 inh IH DAILY 12/05 Tramadol HCl [Ultram] 50 mg PO TID PRN 12/05/18 - Past Medical/Surgical History Diabetic: No -: HTN -: depression -: sleep apnea -: COPD -: appendectomy -: cataract removal -: retina re-attatchment - Family History Mother Medical History: Hypertension Notes: alzheimer's dse - Social History Smoking Status: Never smoker Alcohol use: Yes CD- Drugs: No Caffeine use: Yes Place of Residence: Home Review of Systems 10-point ROS is otherwise unremarkable Respiratory: Shortness of Breath Physical Examination Temp Pulse Resp BP Pulse Ox 98.0 F 92 H 20 131/61 94 12/05/18 08:00 12/05/18 08:00 12/05/18 08:00 12/05/18 08:00 12/05/18 08:00 General: Alert, In no apparent distress, Oriented x3 Neck: Supple Respiratory: Clear to auscultation bilaterally Cardiovascular: No edema, Regular rate/rhythm, Normal S1 S2 Laboratory Data (last 24 hrs) 12/04/18 23:59: WBC 19.7 H, Hgb 16.6, Hct 47.9, Plt Count 247 12/04/18 23:59: Sodium 138, Potassium 3.8, BUN 20 H, Creatinine 0.85, Glucose 102 - Problems (1) COPD exacerbation Onset Date: 05/17/16 Current Visit: No Status: Acute Plan: Patient is 63 years of age admitted with COPD exacerbation he has had multiple exacerbations add some prednisone change to p.o. levofloxacin chest x-ray prominent hilum of ordered a repeat PA lateral chest x-ray patient's white count is elevated is quite possible that he has a pneumonia cultures are pending patient is compliant with his inhalers I suggest changing him over to trilogy at the time of discharge patient to take either trilogy call or Stiolto vital signs stable oxygenation satisfactory possible discharge tomorrow for white count is declining may need to do a CT scan he has things do not improve by tomorrow
--- NOTE | 2018-12-05 12:46 | P.HP ---
Certification for Inpatient Patient admitted to: Observation With expected LOS: <2 Midnights Patient will require the following post-hospital care: None Practitioner: I am a practitioner with admitting privileges, knowledge of patient current condition, hospital course, and medical plan of care. Services: Services provided to patient in accordance with Admission requirements found in Title 42 Section 412.3 of the Code of Federal Regulations Patient History Date of Service: 12/05/18 Reason for admission: Sore throat shortness of breath History of Present Illness: Patient is a 63-year-old gentleman who came to the hospital with difficulty breathing. Patient had gone to see his primary care provider earlier in the day and was given a steroid injection as well as started on oral antibiotics. He continued to gradually get worse and he was having a hard time catching his breath so he came into the emergency room for further evaluation. In the emergency room patient was slightly hypoxic and decision was made to admit him to the hospital for further evaluation. Patient had a leukocytosis as well as low oxygen level. At this time, patient will be admitted to the hospital for further evaluation. Allergies No Known Allergies Allergy (Verified 12/05/18 03:47) Home Medications: ALPRAZolam [Xanax] 1 mg PO BID 12/05/18 Albuterol Sulfate [Proair Hfa] 8.5 gm IH Q4H PRN 12/05/18 Amlodipine Besylate/Benazepril [Lotrel 10-20 mg Capsule] 1 each PO DAILY Anastrozole [Arimidex] 1 mg PO DAILY 12/05/18 Benzonatate [Tessalon Perle] 200 mg PO TID 12/05/18 Cyanocobalamin (Vitamin B-12) [Cyanocobalamin Injection] 1,000 mcg IM SEECOM Cyclobenzaprine [Flexeril] 10 mg PO BID 12/05/18 Escitalopram [Lexapro*] 20 mg PO DAILY 12/05/18 Fluticasone/Umeclidin/Vilanter [Trelegy Ellipta 100-62.5-25] 1 each IH DAILY 30 Days blst.w.dev 12/05/18 Hydromorphone HCl [Dilaudid] 4 mg PO TID 12/05/18 Ibuprofen [Ibu] 800 mg PO TID 12/05/18 Meclizine HCl 25 mg PO TID 12/05/18 Mesalamine 2 tab PO BID 12/05/18 Methylpred Acet [Depo-Medrol] 80 mg IM DAILY 12/05/18 Metoclopramide HCl [Reglan] 10 mg PO DAILY 12/05/18 Omeprazole 20 mg PO DAILY 12/05/18 Testosterone Cypionate [Testone Cik] 200 mg IM SEECOM 12/05/18 Tiotropium Br/Olodaterol HCl [Stiolto Respimat Inhal [place]] 2 inh IH DAILY 12/05 Tramadol HCl [Ultram] 50 mg PO TID PRN 12/05/18 - Past Medical/Surgical History Has patient received pneumonia vaccine in the past: Yes Diabetic: No -: HTN -: depression -: sleep apnea -: COPD -: appendectomy -: cataract removal -: retina re-attatchment - Family History Mother Medical History: Hypertension Notes: alzheimer's dse - Social History Alcohol use: Yes CD- Drugs: No Caffeine use: Yes Place of Residence: Home Review of Systems 10-point ROS is otherwise unremarkable Physical Examination - Vital Signs Temperature: 98.3 F Blood Pressure: 149/67 Pulse: 95 Respirations: 20 Pulse Ox (%): 95 - Physical Exam General: Alert, In no apparent distress, Oriented x3 HEENT: Atraumatic, PERRLA, Mucous membr. moist/pink, EOMI, Sclerae nonicteric Neck: Supple, 2+ carotid pulse no bruit, No LAD, Without JVD or thyroid abnormality Respiratory: Expiratory wheezes, Rhonchi/gurgles Cardiovascular: Regular rate/rhythm, Normal S1 S2 Gastrointestinal: Normal bowel sounds, Soft and benign, Non-distended, No tenderness Musculoskeletal: No clubbing, No swelling, No tenderness Integumentary: No rashes Neurological: Normal gait, Normal speech, Normal strength at 5/5 x4 extr, Normal tone, Sensation intact, Cranial nerves 3-12 intact, Normal affect Lymphatics: No axilla or inguinal lymphadenopathy - Studies Laboratory Data (last 24 hrs) 12/04/18 23:59: WBC 19.7 H, Hgb 16.6, Hct 47.9, Plt Count 247 12/04/18 23:59: Sodium 138, Potassium 3.8, BUN 20 H, Creatinine 0.85, Glucose 102 Microbiology Data (last 24 hrs): 12/04/18 23:59 Nasopharnyx Influenza Type A Antigen Screen - Final 12/04/18 23:59 Nasopharnyx Influenza Type B Antigen Screen - Final Assessment & Plan - Problems (Diagnosis) (1) Pneumonia Current Visit: Yes Status: Acute (2) COPD exacerbation Onset Date: 05/17/16 Current Visit: No Status: Acute (3) Dyspnea Onset Date: 05/17/16 Current Visit: No Status: Acute - Plan Plan: 1. Continue with IV antibiotics 2. Awaiting sputum and blood culture; procalcitonin level 3. Repeat chest x-ray in AM 4. Will order CT scan of the chest if pneumonia is not improving 5. O2 per protocol 6. Continue with gentle hydration 7. Pulmonary consultation 8. GI and DVT prophylaxis Discharge Plan: Home Plan to discharge in: 48 Hours - Advance Directives Does patient have a Living Will: No Does patient have a Durable POA for Healthcare: No - Code Status/Comfort Care Code Status Assessed: Yes Code Status: Full Code Critical Care: No Time Spent Managing PTS Care (In Minutes): 40
[2018-12-05] MEDS: ESCITALOPRAM 20 MG TAB PO SCH (13:23)
[2018-12-05] MEDS: PANTOPRAZOLE 40MG TABLET PO SCH (13:23)
[2018-12-05] MEDS: BENAZEPRIL 20 MG TAB PO SCH (13:23)
[2018-12-05] MEDS: AMLODIPINE 10 MG TAB PO SCH (13:23)
[2018-12-05] MEDS: METOCLOPRAMIDE 5 MG TAB PO SCH (13:24)
[2018-12-05] MEDS: CYCLOBENZAPRINE 10 MG TAB PO SCH ×2 (13:24→20:46)
[2018-12-05] MEDS: MECLIZINE HCL 12.5 MG TAB PO SCH ×2 (13:24→20:46)
[2018-12-05] MEDS: predniSONE 20 MG TAB PO SCH ×2 (13:25→20:47)
[2018-12-05] MEDS: TRAMADOL HCL 50 MG TAB PO PRN ×2 (13:25→20:46)
[2018-12-05] MEDS: BENZONATATE 100 MG CAP PO SCH ×2 (14:00→20:47)
--- NOTE | 2018-12-05 14:11 | RAD REPORT ---
EXAM DESCRIPTION: RAD - Chest Pa And Lat (2 Views) - 12/05/2018 2:02 pm CLINICAL HISTORY: COPD exacerbation abnormal chest x-ray Chest pain. COMPARISON: Chest Single View dated 12/05/2018; Chest Single View dated 09/20/2018; Chest Pa And Lat ( 2 Views) dated 09/19/2018; Chest Pa And Lat (2 Views) dated 09/04/2018 FINDINGS: Ill-defined left lower lobe lung opacity is noted, mildly improved since 12/05/2018. The l ungs are mildly emphysematous. The heart is upper limit of normal in size. No displaced fractures. IMPRESSION: Mild improvement in left lower lobe pneumonia since comparative study.
--- NOTE | 2018-12-05 14:39 | ECHO ---
HEIGHT: 5 ft 9 in WEIGHT: 213 lb 9.6 oz DATE OF STUDY: 12/05/[address]: Esteban Feliz MD 2-DIMENSIONAL: YES M.MODE: YES DOPPLER: YES COLOR FLOW: YES TDS: YES PORTABLE: NO DEFINITY: NO BUBBLE STUDY: NO DIAGNOSIS: SHORTNESS OF BREATH CARDIAC HISTORY: CATHERIZATION: NO SURGERY: NO PROSTHETIC VALVE: NO PACEMAKER: NO MEASUREMENTS (cm) DIASTOLIC (NORMALS) SYSTOLIC (NORMALS) IVSd 1.2 (0.6-1.2) LA Diam 4.1 (1.9-4.0) LVEF 76% LVIDd 5.2 (3.5-5.7) LVIDs 2.8 (2.0-3.5) %FS 45% LVPWd 1.2 (0.6-1.2) Ao Diam 2.9 (2.0-3.7) 2 DIMENSIONAL ASSESSMENT: RIGHT ATRIUM: NORMAL LEFT ATRIUM: DILATED RIGHT VENTRICLE: NORMAL LEFT VENTRICLE: NORMAL TRICUSPID VALVE: NORMAL MITRAL VALVE: NORMAL PULMONIC VALVE: NORMAL AORTIC VALVE: NORMAL PERICARDIAL EFFUSION: NONE AORTIC ROOT: NORMAL LEFT VENTRICULAR WALL MOTION: NORMAL DOPPLER/COLOR FLOW: NORMAL COMMENTS: NORMAL LEFT VENTRICULAR EJECTION FRACTION. DILATED LEFT ATRIUM. SINUS TACHYCARDIA, HEART RATE 120-125 BEATS PER MINUTE. OTHERWISE NORMAL 2D ECHOCARDIOGRAM WITH DOPPLER. TECHNOLOGIST: Madhu CROW
[2018-12-05] MEDS: ALPRAZOLAM 1 MG TABLET PO SCH (20:46)
[2018-12-05] MEDS: HOME MED 1 EA UNK (Mesalamine [Mesalamine] 2 TAB) PO SCH (21:00)
[2018-12-06] MEDS: IPRATROPIUM BROM 0.5MG/2.5ML NEB SCH ×4 (02:00→20:15)
[2018-12-06] MEDS: ALBUTEROL 2.5 MG/3 ML NEB SOL NEB SCH ×4 (02:00→20:15)
[2018-12-06 04:18] LABS: Absolute Lymphocytes (CBC) 1.2 K/uL (0.7-4.9); Basophils % 0.1 % (0-1.3); Hematocrit 43.2 % (39.6-49.0); Lymphocytes % 5.5 % (15.3-44.8); MPV 8.7 fL (7.6-11.3); RBC Red Blood Cell Count 4.77 M/uL (4.33-5.43)
[2018-12-06 04:32] LABS: BUN Blood Urea Nitrogen 15 mg/dL (7-18); Bicarbonate 27 mmol/L (21-32); Glucose Level 165 mg/dL (74-106); HDL Cholesterol 55 mg/dL (40-60); LDL Cholesterol, Calculated 82 (<130); Potassium 4.3 mmol/L (3.5-5.1); Sodium Level 144 mmol/L (136-145)
[2018-12-06] MEDS: NA CHLORIDE 0.9% 1,000 ML IV SCH (05:09)
--- NOTE | 2018-12-06 07:17 | RAD REPORT ---
EXAM DESCRIPTION: RAD - Chest Pa And Lat (2 Views) - 12/06/2018 6:48 am CLINICAL HISTORY: PNA COMPARISON: December 05 TECHNIQUE: PA and lateral views of the chest were obtained. FINDINGS: The lungs are underinflated. No significant failure or volume overload findings. There is continued improvement of the left lung base pneumonia. Residual infiltrate remains. No significant f ailure or volume overload. Trachea is midline. Heart size is normal and central vasculature is within normal limits. No pleural effusion or pneumothorax seen. No acute bony finding noted. No aortic a bnormality. IMPRESSION: Continued clearing of left lung base pneumonia. A small amount of remnant infiltrate rem ains.
--- NOTE | 2018-12-06 08:31 | P.PN ---
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 still is a little so throat Review of Systems General: Weakness Respiratory: Cough, Shortness of Breath Physical Examination - Vital Signs Temperature: 97.1 F Blood Pressure: 159/72 Pulse: 84 Respirations: 16 Pulse Ox (%): 95 - Physical Exam General: Alert, In no apparent distress, Oriented x3 HEENT: Atraumatic Neck: Supple Respiratory: Expiratory wheezes Cardiovascular: Regular rate/rhythm Assessment & Plan - Problems (Diagnosis) (1) COPD exacerbation Onset Date: 05/17/16 Current Visit: No Status: Acute Plan: Patient appears to have an pneumonia in the left lung probably underlying COPD exacerbation history of obstructive and restrictive disease white count is still elevated so also his pro calcitonin is elevated I have ordered a CT scan of the chest without contrast cultures are negative white count may be elevated from the steroids await results of CT scan white count is slightly low possible discharge tomorrow if is declining vital signs satisfactory
[2018-12-06] MEDS ORDERED: AMLODIPINE BESYLATE PO SCH (09:00)
[2018-12-06] MEDS: TIOTROPIUM BR IH SCH (09:00)
[2018-12-06] MEDS ORDERED: BENAZEPRIL PO SCH (09:00)
[2018-12-06] MEDS: HOME MED 1 EA UNK (Mesalamine [Mesalamine] 2 TAB) PO SCH ×2 (09:00→21:00)
[2018-12-06] MEDS: OLODATEROL HCL IH SCH (09:00)
[2018-12-06] MEDS: ANASTROZOLE 1 MG TAB PO SCH (09:00)
[2018-12-06] MEDS: AMLODIPINE 10 MG TAB PO SCH (09:50)
[2018-12-06] MEDS: ENOXAPARIN 40 MG/0.4 ML SQ SCH (09:50)
[2018-12-06] MEDS: predniSONE 20 MG TAB PO SCH ×2 (09:51→21:27)
[2018-12-06] MEDS: BENZONATATE 100 MG CAP PO SCH ×3 (09:51→21:26)
[2018-12-06] MEDS: BENAZEPRIL 20 MG TAB PO SCH (09:51)
[2018-12-06] MEDS: METOCLOPRAMIDE 5 MG TAB PO SCH (09:52)
[2018-12-06] MEDS: ESCITALOPRAM 20 MG TAB PO SCH (09:52)
[2018-12-06] MEDS: MECLIZINE HCL 12.5 MG TAB PO SCH ×3 (09:52→21:26)
[2018-12-06] MEDS: ALPRAZOLAM 1 MG TABLET PO SCH ×2 (09:52→21:27)
[2018-12-06] MEDS: levoFLOXacin 500 MG TAB PO SCH (09:52)
[2018-12-06] MEDS: CYCLOBENZAPRINE 10 MG TAB PO SCH ×2 (09:53→21:26)
[2018-12-06] MEDS: PANTOPRAZOLE 40MG TABLET PO SCH (09:53)
--- NOTE | 2018-12-06 10:36 | P.PN ---
Subjective Date of Service: 12/06/18 Chief Complaint: Pneumonia Subjective: Improving Patient seen and examined at bedside. No family at bedside. Chart reviewed and case discussed with nursing staff. He reports feeling better this morning. No acute events noted overnight. Pain better controlled with medication. Denies any fevers, chills, shortness of breath, other GI or complaints at this time. Review of Systems 10-point ROS is otherwise unremarkable Physical Examination - Vital Signs Temperature: 97.1 F Blood Pressure: 159/72 Pulse: 84 Respirations: 16 Pulse Ox (%): 95 - Physical Exam General: Alert, In no apparent distress HEENT: Atraumatic, PERRLA, EOMI Neck: Supple, JVD not distended Respiratory: Clear to auscultation bilaterally, Normal air movement Cardiovascular: Regular rate/rhythm, Normal S1 S2 Gastrointestinal: Normal bowel sounds, No tenderness Musculoskeletal: No tenderness Integumentary: No rashes Neurological: Normal speech, Normal tone, Normal affect Lymphatics: No axilla or inguinal lymphadenopathy Assessment And Plan - Current Problems (Diagnosis) (1) Pneumonia Current Visit: Yes Status: Acute Plan: Initial chest x-ray with evidence of left-sided pneumonia. Repeat chest x-ray with mild improvement. -continue IV antibiotics -Breathing treatments as needed -Continue steroids -Pulmonology consultation, recommendations appreciated. -CT chest ordered, pending. -cultures pending, negative till date Qualifiers: Pneumonia type: due to unspecified organism Laterality: unspecified laterality Lung location: unspecified part of lung Qualified Code(s): J18.9 - Pneumonia, unspecified organism (2) COPD exacerbation Onset Date: 05/17/16 Current Visit: No Status: Acute Plan: Continue nebulizer treatments and steroids as needed. Provide oxygen as needed. -he will need outpatient follow up with pulmonology for further evaluation and management. (3) Dyspnea Onset Date: 05/17/16 Current Visit: No Status: Acute Qualifiers: Dyspnea type: unspecified Qualified Code(s): R06.00 - Dyspnea, unspecified (4) Leukocytosis Current Visit: Yes Status: Acute Plan: Likely secondary to pneumonia along with IV steroid use. -As patient continues to have leukocytosis even on IV antibiotics. CT scan of the chest to evaluate further. - Plan DVT prophylaxis: Lovenox GI prophylaxis: None Diet: Heart healthy Disposition: Pending symptomatic improvement. Anticipate discharge home in the next 24-48 hr.
--- NOTE | 2018-12-06 12:16 | RAD REPORT ---
EXAM DESCRIPTION: CT - Thorax Wo Con - 12/06/2018 11:12 am CLINICAL HISTORY: Pneumonia, shortness of breath COMPARISON: Chest exam December 06 TECHNIQUE: Axial 5 mm thick images of the chest were obtained without IV contrast. All CT scans are performed using dose optimization technique as appropriate and may include automated exposure control or mA/KV adjustment according to patient size. FINDINGS: A few small sub centimeter nodular opacities are present in the lateral right upper lung f ield with some hazy surrounding ground-glass opacities. Interstitial markings are mildly prominent. I n the base of the left lower lobe there are interstitial and alveolar opacities present. Slight bronc hial wall thickening changes are present. Minimal amount of similar interstitial and alveolar peribro nchial opacities are present in the inferior aspect of the lingula. Minimal nodularity seen near the superior segment left lower lobe. No pleural thickening or pleural effusion. No pneumothorax. No pleural based mass seen. No endobronc hial lesion. Patient has a few nonspecific noncalcified mediastinal lymph nodes likely reactive. No suspicious or clearly pathologic mediastinal or hilar mass. No gross aortic or pulmonary artery finding suspected. Assessment is limited in the absence of IV contrast. No pericardial thickening or effusion. No chest wall mass or abnormal axillary lymphadenopathy. IMPRESSION: Mild interstitial opacification and nodular opacities present in the superior aspect rig ht upper lobe and in the lingula and inferior aspect of the left lower lobe. Pattern is most consiste nt with scattered mild pneumonia. No large mass or consolidation of the lung parenchyma. Small nonspecific mediastinal lymph nodes most likely reactive.
[2018-12-06] MEDS: TRAMADOL HCL 50 MG TAB PO PRN (21:31)
[2018-12-06 21:43] VITALS: O2SAT 95
[2018-12-07] MEDS: ALBUTEROL 2.5 MG/3 ML NEB SOL NEB SCH ×3 (02:00→14:10)
[2018-12-07] MEDS: IPRATROPIUM BROM 0.5MG/2.5ML NEB SCH ×3 (02:00→14:10)
[2018-12-07 07:49] VITALS: BP 150/67; TEMP 97.4
[2018-12-07] MEDS ORDERED: INFLUENZA VACCINE (for 3y+) 0.5 ML DOSE IMVAC ONE (08:00)
--- NOTE | 2018-12-07 08:43 | EKG ---
Test Date: 2018-12-05 Test Time: 15:45:15 Embedded Software Engineer: HARSHAL MEASUREMENT RESULTS: Intervals: Rate: 103 NE: 234 QRSD: 100 QT: 344 QTc: 450 [place]: P: 71 NE: 234 QRS: -45 T: 24 INTERPRETIVE STATEMENTS: Sinus tachycardia with 1st degree AV block Left anterior fascicular block Minimal voltage criteria for LVH, may be normal variant Abnormal ECG Compared to ECG 12/05/2018 00:16:28 First degree AV block now present Left anterior fascicular block now present Left-axis deviation no longer present Electronically Signed On 12-07-18 08:41:44 CDT by Kevin Sanchez
[2018-12-07] MEDS: BENZONATATE 100 MG CAP PO SCH ×2 (08:47→14:35)
[2018-12-07] MEDS: ENOXAPARIN 40 MG/0.4 ML SQ SCH (08:47)
[2018-12-07] MEDS: METOCLOPRAMIDE 5 MG TAB PO SCH (08:47)
[2018-12-07] MEDS: ESCITALOPRAM 20 MG TAB PO SCH (08:47)
[2018-12-07] MEDS: ANASTROZOLE 1 MG TAB PO SCH (08:47)
[2018-12-07] MEDS: PANTOPRAZOLE 40MG TABLET PO SCH (08:47)
[2018-12-07] MEDS: TRAMADOL HCL 50 MG TAB PO PRN (08:48)
[2018-12-07] MEDS: predniSONE 20 MG TAB PO SCH (08:48)
[2018-12-07] MEDS: MECLIZINE HCL 12.5 MG TAB PO SCH ×2 (08:48→14:35)
[2018-12-07] MEDS: BENAZEPRIL 20 MG TAB PO SCH (08:49)
[2018-12-07] MEDS: levoFLOXacin 500 MG TAB PO SCH (08:50)
[2018-12-07] MEDS: ALPRAZOLAM 1 MG TABLET PO SCH (08:50)
[2018-12-07] MEDS: AMLODIPINE 10 MG TAB PO SCH (08:50)
[2018-12-07] MEDS: HOME MED 1 EA UNK (Mesalamine [Mesalamine] 2 TAB) PO SCH (08:53)
[2018-12-07] MEDS: TIOTROPIUM BR IH SCH (08:53)
[2018-12-07] MEDS: OLODATEROL HCL IH SCH (08:53)
[2018-12-07] MEDS: CYCLOBENZAPRINE 10 MG TAB PO SCH (10:14)
[2018-12-07 12:13] LABS: Absolute Lymphocytes (CBC) 1.5 K/uL (0.7-4.9); Basophils % 0.3 % (0-1.3); Hematocrit 43.9 % (39.6-49.0); Lymphocytes % 8.1 % (15.3-44.8); MPV 8.5 fL (7.6-11.3); RBC Red Blood Cell Count 4.95 M/uL (4.33-5.43)
[2018-12-07 12:31] LABS: BUN Blood Urea Nitrogen 13 mg/dL (7-18); Bicarbonate 30 mmol/L (21-32); Glucose Level 128 mg/dL (74-106); Potassium 3.8 mmol/L (3.5-5.1); Sodium Level 143 mmol/L (136-145)
--- NOTE | 2018-12-07 12:48 | P.DS ---
Admission Date: 12/05/18 Discharge Date: 12/07/18 Disposition: ROUTINE DISCHARGE Discharge Condition: FAIR Reason for Admission: Pneumonia Consultations: Pulmonology - Problems (1) Pneumonia Current Visit: Yes Status: Acute Qualifiers: Pneumonia type: due to unspecified organism Laterality: unspecified laterality Lung location: unspecified part of lung Qualified Code(s): J18.9 - Pneumonia, unspecified organism (2) COPD exacerbation Onset Date: 05/17/16 Current Visit: No Status: Acute (3) Dyspnea Onset Date: 05/17/16 Current Visit: No Status: Acute Qualifiers: Dyspnea type: unspecified Qualified Code(s): R06.00 - Dyspnea, unspecified (4) Leukocytosis Current Visit: Yes Status: Acute Brief History of Present Illness: Patient is a 63-year-old gentleman who came to the hospital with difficulty breathing. Patient had gone to see his primary care provider earlier in the day and was given a steroid injection as well as started on oral antibiotics. He continued to gradually get worse and he was having a hard time catching his breath so he came into the emergency room for further evaluation. In the emergency room patient was slightly hypoxic and decision was made to admit him to the hospital for further evaluation. Patient had a leukocytosis as well as low oxygen level. At this time, patient will be admitted to the hospital for further evaluation. Hospital Course: Patient was admitted for pneumonia. He was started on IV antibiotics, breathing treatments and steroids. Pulmonology was consulted. CT chest was done, which was negative for any acute abnormalities. His cultures remained negative throughout the stay. His symptoms improved, his WBC count also improved. He was then discharged home on oral Levaquin with instructions to follow up with pulmonology in 1-2 weeks. His diagnoses chest treatment plan was explained to him, all questions were answered he verbalized understanding. He was then discharged home in a safe and stable manner. Vital Signs/Physical Exam: Temp Pulse Resp BP Pulse Ox 97.4 F 70 18 150/67 H 96 12/07/18 07:48 12/07/18 08:50 12/07/18 08:48 12/07/18 08:50 12/07/18 08:48 General: Alert, In no apparent distress, Oriented x3 HEENT: Atraumatic, PERRLA, EOMI Neck: Supple, JVD not distended Respiratory: Clear to auscultation bilaterally, Normal air movement Cardiovascular: Regular rate/rhythm, Normal S1 S2 Gastrointestinal: Normal bowel sounds, No tenderness Musculoskeletal: No tenderness Integumentary: No rashes Neurological: Normal speech, Normal tone, Normal affect Lymphatics: No axilla or inguinal lymphadenopathy Laboratory Data at Discharge: WBC 18.0 K/uL (4.3-10.9) H D 12/07/18 11:54 Hgb 15.2 g/dL (13.6-17.9) 12/07/18 11:54 Hct 43.9 % (39.6-49.0) 12/07/18 11:54 Plt Count 268 K/uL (152-406) 12/07/18 11:54 Sodium 143 mmol/L (136-145) 12/07/18 11:54 Potassium 3.8 mmol/L (3.5-5.1) 12/07/18 11:54 BUN 13 mg/dL (7-18) 12/07/18 11:54 Creatinine 0.72 mg/dL (0.55-1.3) 12/07/18 11:54 Glucose 128 mg/dL (74-106) H 12/07/18 11:54 Troponin I < 0.02 ng/mL (0.0-0.045) 12/05/18 05:53 Triglycerides 46 mg/dL (<150) 12/06/18 04:05 Cholesterol 146 mg/dL (<200) 12/06/18 04:05 HDL Cholesterol 55 mg/dL (40-60) 12/06/18 04:05 Cholesterol/HDL Ratio 2.65 12/06/18 04:05 Home Medications: ALPRAZolam [Xanax*] 1 mg PO BID 12/05/18 Albuterol Sulfate [Proair Hfa] 8.5 gm IH Q4H PRN 12/05/18 Amlodipine Besylate/Benazepril [Lotrel 10-20 mg Capsule] 1 each PO DAILY Anastrozole [Arimidex*] 1 mg PO DAILY 12/05/18 Benzonatate [Tessalon Perle*] 200 mg PO TID 12/05/18 Cyanocobalamin (Vitamin B-12) [Cyanocobalamin Injection] 1,000 mcg IM SEECOM Cyclobenzaprine [Flexeril*] 10 mg PO BID 12/05/18 Escitalopram [Lexapro*] 20 mg PO DAILY 12/05/18 Fluticasone/Umeclidin/Vilanter [Trelegy Ellipta 100-62.5-25] 1 each IH DAILY 30 Days blst.w.dev 12/05/18 Hydromorphone HCl [Dilaudid] 4 mg PO TID 12/05/18 Ibuprofen [Ibu] 800 mg PO TID 12/05/18 Meclizine HCl 25 mg PO TID 12/05/18 Mesalamine 2 tab PO BID 12/05/18 Methylpred Acet [Depo-Medrol*] 80 mg IM DAILY 12/05/18 Metoclopramide HCl [Reglan] 10 mg PO DAILY 12/05/18 Omeprazole 20 mg PO DAILY 12/05/18 Testosterone Cypionate [Testone Cik] 200 mg IM SEECOM 12/05/18 Tiotropium Br/Olodaterol HCl [Stiolto Respimat Inhal [place]] 2 inh IH DAILY 12/05 Tramadol HCl [Ultram] 50 mg PO TID PRN 12/05/18 levoFLOXacin [Levaquin*] 500 mg PO DAILY #10 tab 12/07/18 New Medications: Fluticasone/Umeclidin/Vilanter [Trelegy Ellipta 100-62.5-25] 1 each IH DAILY 30 Days blst.w.dev levoFLOXacin [Levaquin*] 500 mg PO DAILY #10 tab Patient Discharge Instructions: Please follow up with the primary care physician in 2-3 days. Please follow with pulmonology in 2 weeks. New medications: Levaquin, an antibiotic for your pneumonia. As well as nebulizer treatment. Return to the emergency room for worsening symptoms. Diet: Regular Activity: Ad yolanda Followup: Esteban Feliz MD [ACTIVE - CAN ADMIT] - Time spent managing pt's care (in minutes): 55
[2018-12-07 13:40] LABS: Blood Morphology Comment NOT SEEN (NOT SEEN); Platelet Estimate ADEQ; Urine White Blood Cell Casts OK
[2018-12-09] MEDS ORDERED: CYANOCOBALAMIN 1000MCG/ML INJ IM SCH (09:00)
[2018-12-09] MEDS ORDERED: [UNRECOGNIZED DRUG - OTHER] IM SCH (09:00)
== END 2018-12-07 14:48 | disposition home or self-care (01) | DRG 190 ==
LOC: ER 23:23 → ERHOLD 12-05 02:06 → 4TH 12-05 03:25
PROVIDERS: ADMIT Hospitalist; ATTEND Hospitalist
DX: J44.0 Chronic obstructive pulmonary disease with (acute) lower respiratory infection (principal); J18.9 Pneumonia, unspecified organism; J44.1 Chronic obstructive pulmonary disease with (acute) exacerbation; R09.02 Hypoxemia; I10 Essential (primary) hypertension; F32.9 Major depressive disorder, single episode, unspecified
CPT/HCPCS: 36415; 71045; 71046; 71250; 80048; 80061; 83605; 83880; 84145; 84484; 85025; 87040; 87804; 93005; 93306; 94640; 94760; 96361; 96365; 96375; 99285; J0456; J0696; J1650; J2930; J7030; J7512

== ENCOUNTER 2024-07-10 10:53 | Emergency (ER) | payer OTHER, BC ==
--- NOTE | 2024-07-10 11:33 | RAD REPORT ---
EXAMINATION: Ct Stroke Brain Wo Cont CLINICAL INDICATION: Male, 69 years old.STROKE ALERT TECHNIQUE: Axial CT images from the skull base to the vertex without intravenous contrast using a str marquis protocol. Coronal and sagittal reformatted images were created from the data set. One or more of the following dose reduction techniques were used: Automated exposure control, adjustment of the m A and/or kV according to patient size, and/or iterative reconstruction. Unless otherwise specified, incidental findings do not require dedicated imaging follow-up. [id number]. COMPARISON: 09/20/2018 FINDINGS: INTRACRANIAL: No acute intracranial hemorrhage. No hydrocephalus. No mass effect or midline shift. Mi ld chronic small vessel ischemic changes.Mild cerebral atrophy. Cavum septum pellucidum. VASCULATURE: No visualized abnormalities in the arteries or dural venous sinuses. SCALP/SKULL: No calvarial fracture identified. No acute soft tissue abnormality. SINUSES: The visualized paranasal sinuses are mostly clear. No significant mastoid fluid. IMPRESSION: No acute intracranial abnormality. The findings were communicated to Dr. Minaya on 07/10/2024 11:31 AM.
--- NOTE | 2024-07-10 11:38 | RAD REPORT ---
EXAMINATION: Neck Angio CLINICAL INDICATION: Male, 69 years old. NUMBNESS TECHNIQUE: Axial CT images were obtained from the aortic arch to the skull base after intravenous con trast utilizing angiographic protocol with 3D post-processing (maximum intensity projection images, volume rendered images and/or shaded surface rendered images). One or more of the following dose redu ction techniques were used: Automated exposure control, adjustment of the mA and/or kV according to patient size, and/or iterative reconstruction. Unless otherwise specified, incidental findings do not require dedicated imaging follow-up. [id number]. NASCET criteria used. Mild 0-49% stenosis Moderate 50-69% stenosis Severe 70-99% stenosis COMPARISON: No prior exam. FINDINGS: AORTA: Normal RIGHT: - CCA: Patent - ICA: Atherosclerotic changes but no flow limiting stenosis. - ECA: Patent LEFT: - CCA: Patent - ICA: Severe (greater than 70% but less than occlusion) stenosis of the left ICA just. The bulb seco ndary to predominantly noncalcified plaque. - ECA: Patent VERTEBRAL: Patent SOFT TISSUE: No significant neck soft tissue abnormalities. The visualized lung apices are clear. 3D images confirm these findings. IMPRESSION: Severe (greater than 70% but less than occlusion) stenosis of the left proximal ICA secondary to pred ominantly noncalcified plaque. The right carotid system and vertebral arteries are patent. No dissection..
--- NOTE | 2024-07-10 11:39 | RAD REPORT ---
EXAMINATION: Head angio CLINICAL INDICATION: Male, 69 years old. VISUAL DISTURBANCES TECHNIQUE: Axial CT images were obtained through the head after intravenous contrast utilizing angiog raphic protocol with 3D post-processing (maximum intensity projection images, volume rendered images and/or shaded surface rendered images). One or more of the following dose reduction technique s were used: Automated exposure control, adjustment of the mA and/or kV according to patient size, and/or iterative reconstruction. Unless otherwise specified, incidental findings do not require dedic ated imaging follow-up. COMPARISON: No prior exam. FINDINGS: RIGHT: ICA: Atherosclerotic calcifications but no flow limiting stenosis. MARIA ELENA: Patent MCA: Patent FIRST LINE SUPERVISOR: Patent LEFT: ICA: Atherosclerotic calcifications but no flow limiting stenosis. MARIA ELENA: Patent MCA: Patent FIRST LINE SUPERVISOR: Patent Vertebrobasilar: The vertebral arteries are patent. The basilar artery is normal in appearance. 3D images confirm these findings. IMPRESSION: No occlusion, aneurysm, or hemodynamically significant stenosis identified.
[2024-07-10 11:43] LABS: Absolute Basophils 0.1 K/uL (0-0.5); Absolute Eosinophils 0.5 K/uL (0-0.5); Absolute Lymphocytes (CBC) 2.1 K/uL (0.7-4.9); Absolute Neutrophil 7.8 K/uL (1.8-8.0); Basophils % 0.7 % (0-1.3); Eosinophils % 4.4 % (0-4.4); Hematocrit 42.6 % (39.6-49.0); Hemoglobin 14.9 g/dL (13.6-17.9); Lymphocytes % 18.5 % (15.3-44.8); MCH 31.6 pg (27.0-35.0); MCHC 34.9 g/dL (32.0-36.0); MCV 90.4 fL (80-100); MPV 8.9 fL (7.6-11.3); Monocytes % 8.5 % (3.3-12.3); Neutrophils % 67.9 % (41.7-73.7); Platelets 233 thou/uL (152-406); RBC Red Blood Cell Count 4.71 M/uL (4.33-5.43); Red Cell Distribution Width 13.2 % (12.1-15.2)
--- NOTE | 2024-07-10 12:02 | RAD REPORT ---
EXAM: Chest Single View HISTORY: 69 years Male [place] COMPARISON: 10/22/2019 FINDINGS: LUNGS/PLEURA: The lungs are clear. No pleural effusions or pneumothorax. No pulmonary edema. Linear s carring at the right lung base. CARDIAC/MEDIASTINUM: Stable size and configuration. UPPER ABDOMEN: No significant abnormality. BONES: No acute abnormality. LINES/TUBES/OTHER: N/A IMPRESSION: Linear scarring at the right lung base. Otherwise no acute process identified.
[2024-07-10 12:16] LABS: PT Prothrombin Time 11.7 SECONDS (10-13.0); Protime INR 1.03
--- NOTE | 2024-07-10 12:27 | EDPHYS ---
Physician Documentation [facility] Name: Ihsan Alvares Age: 69 yrs Sex: Male : 1955 Arrival Date: 07/10/2024 Time: 10:53 Bed 3 Private MD: ED Physician Pat Minaya Historical: - Allergies: 07/10 11:12 No Known Allergies; db - PMHx: 11:12 Anxiety; Depression; Hypertension; Meniere's disease; Sleep Apnea; ulcerative colitis; db psoriasis; low back pain; COPD; Transient cerebral ischemia; Hypercholesterolemia; - Immunization history:: Adult Immunizations unknown. - Infectious Disease History:: Denies. - Social history:: Smoking status: Patient denies any tobacco usage or history of. Vital Signs: 11:12 BP 122 / 66; Pulse 73; Resp 18; Pulse Ox 95% ; Weight 100.7 kg; Height 5 ft. 9 in. ; db 12:00 BP 130 / 62; Pulse 72; Resp 18; Pulse Ox 96% ; db 13:08 BP 134 / 64; Pulse 64; Resp 16; Temp 98.5; Pulse Ox 93% ; db 14:00 BP 125 / 66; Pulse 74; Resp 16; Pulse Ox 94% ; db 16:00 BP 161 / 74; Pulse 70; Resp 17; Pulse Ox 94% on R/A; db 17:00 BP 137 / 51; Pulse 68; Resp 16; Pulse Ox 93% ; db 17:30 BP 162 / 76; Pulse 73; Resp 18; Pulse Ox 93% ; db 11:12 Body Mass Index 32.78 (100.70 kg, 175.26 cm) db NIH Stroke Scale Scores: 17:29 NIHSS Score: 3 db Arnoldo Coma Score: 13:08 Eye Response: spontaneous(4). Motor Response: obeys commands(6). Verbal Response: db oriented(5). Total: 15. MDM: 11:10 Medical Screening Exam initiated 07/10 11:11 Order name: Basic Metabolic Panel; Complete Time: 12:44 07/10 11:11 Order name: CBC with Diff; Complete Time: 12:05 07/10 11:11 Order name: High Sensitivity Troponin; Complete Time: 12:44 07/10 11:11 Order name: Magnesium; Complete Time: 12:44 07/10 11:11 Order name: Protime (+inr); Complete Time: 12:44 gb07/10 11:11 Order name: Ptt, Activated; Complete Time: 12:44 gb07/10 11:41 Order name: Glucose, Ancillary Testing; Complete Time: 11:43 EDMS 07/10 11:43 Order name: Glucose, Ancillary Testing EDMS 07/10 11:45 Order name: CREATININE WHOLE BLOOD; Complete Time: 12:05 EDMS 07/10 11:11 Order name: CT Head Angio; Complete Time: 11:43 gb07/10 11:11 Order name: CT Neck Angio; Complete Time: 11:43 gb07/10 11:11 Order name: CT Stroke Brain w/o Contrast; Complete Time: 11:43 gb07/10 11:11 Order name: Stroke CXR 1 View; Complete Time: 12:05 gb07/10 13:32 Order name: Brain Wo Cont; Complete Time: 17:13 EDMS 07/10 11:11 Order name: Accucheck; Complete Time: 14:07/10 11:11 Order name: Cardiac monitoring; Complete Time: 14:07/10 11:11 Order name: EKG - Nurse/Tech; Complete Time: 14:07/10 11:11 Order name: IV Saline Lock; Complete Time: 14:07/10 11:11 Order name: Labs collected and sent; Complete Time: 14:07/10 11:11 Order name: NPO; Complete Time: 14:02 07/10 11:11 Order name: O2 Per Protocol; Complete Time: 14:07/10 11:11 Order name: O2 Sat Monitoring; Complete Time: 14:07/10 11:11 Order name: Stroke Swallow Screen; Complete Time: 14:02 07/10 11:51 Order name: Misc. Order: recollect blue and green; Complete Time: 12:56 ll1 Administered Medications: 13:14 Drug: TNK FOR STROKE - Tenecteplase IV (Administer 10 ml NS flush BEFORE and db AFTER tenecteplase) 0.25 mg/kg IV at per protocol once; 0.25mg/kg, MAX DOSE 25 mg, IVP over 5 seconds {Co-Signature: dd2 (MANOLO LOCKETT RN).} Route: IV; Rate: per protocol; Site: left antecubital; 17:46 Follow up: Response: No adverse reaction; IV Status: Completed infusion; IV Intake: 5ml db 15:15 Drug: Ativan IVP 0.5 mg IVP once Route: IVP; Site: left antecubital; db 17:46 Follow up: Response: No adverse reaction db Point of Care Testing: Blood Glucose: 11:12 Blood Glucose: 94 mg/dL; db Ranges: Critical Glucose Levels:Adult <50 mg/dl or >400 mg/dl <40 mg/dl or >180 mg/dl Disposition Summary: 07/10/24 12:26 Transfer Ordered Notes: Transfer Location: Other Acute Care Facility gb1 Reason: Higher level of care gb1 Condition: Stable gb1 Problem: new gb1 Symptoms: have worsened gb1 Accepting Physician: Dr. Cormier(07/10/24 17:46) db Diagnosis - Transient cerebral ischemic attack, unspecified gb1 Forms: - Medication Reconciliation Form gb1 - SBAR form gb1 NIH Stroke Scale - NIH Stroke Score Date: 07/10/2024 Time: 17:29 Total Score = 3 10. Dysarthria (speech clarity - read or repeat words) - 0(Normal) 11. Extinction and Inattention (visual/tactile/auditory/spatial/personal) - 0(No abnormality) 1a. Level of Consciousness (LOC) - 0(Alert) 1b. Level of Consciousness (LOC) (Month \T\ Age) - 0(Both) 1c. LOC Commands (Open \T\ Closes Eyes/Charge Operator) - 0(Both) 2. Best Gaze (Lateral Gaze Paresis) - 0(Normal) 3. Visual Field Loss - 1(Partial hemianopia) 4. Facial Palsy - 0(Normal) 5a. Left Arm: Motor (10-second hold) - 0(No drift) 5b. Right Arm: Motor (10-second hold) - 0(No drift) 6a. Left Leg: Motor (5-second hold - always test supine) - 1(Drift) 6b. Right Leg: Motor (5-second hold - always test supine) - 0(No drift) 7. Limb Ataxia (finger/nose \T\ heel/paul - test with eyes open) - 1(Present in one limb) 8. Sensory Loss (pinprick arms/legs/face) - 0(Normal) 9. Best Language: Aphasia (description/naming/reading) - 0(No aphasia) Initials: db Signatures: Dispatcher [employer] EDMS Jethro Dee, CT MANAGER-C CT MANAGER-Cla1 Esther Merrill, RN RN ll1 Jessica Magallon RN RN db Pat Minaya MD MD gb1 MANOLO LOCKETT RN dd2 Corrections: (The following items were deleted from the chart) 11:12 11:12 Chest Single View+RAD.RAD.BRZ ordered. EDMS EDMS 12:51 12:26 Dr. andino gb1 13:32 12:29 MR STROKE PROTOCOL+MRI.RAD.BRZ ordered. EDMS EDMS 17:46 12:51 Dr. Genia patton1 db
--- NOTE | 2024-07-10 12:27 | ER ---
Nurse's Notes [facility] [place], [place] Name: Ihsan Alvares Age: 69 yrs Sex: Male : 1955 Arrival Date: 07/10/2024 Time: 10:53 Bed 3 Private MD: Diagnosis: Transient cerebral ischemic attack, unspecified Presentation: 07/10 11:12 Chief complaint: EMS states: COMPLETE LOSS OF VISION \T\ 1020 WITH LEFT FACIAL NUMBNESS, db LEFT CHEEK, 1030 UPON EMS ARRIVAL BLURRY VISION STARTED CLEARING UP WITH LEFT SIDE NUMBNESS WITH HX OF RECENT TIA 06/28/2024. NOTED ARRIVAL WITH EXHIBITS COORDINATOR BY CARDIOLOGY FOR IRREGULAR HEART RATE. Coronavirus screen: Client denies travel out of the [place] in the last 14 days. At this time, the client does not indicate any symptoms associated with coronavirus-19. Ebola Screen: Patient negative for fever greater than or equal to 101.5 degrees Fahrenheit, and additional compatible Ebola Virus Disease symptoms Patient denies exposure to infectious person. Patient denies travel to an Ebola-affected area in the 21 days before illness onset. No symptoms or risks identified at this time. An acute neurological deficit is present. The charge nurse has been notified. The patients blood glucose was checked before arriving to the hospital and was found to be normal. Initial Sepsis Screen: Does the patient meet any 2 criteria? No. Patient's initial sepsis screen is negative. Does the patient have a suspected source of infection? No. Patient's initial sepsis screen is negative. Risk Assessment: Do you want to hurt yourself or someone else? Patient reports no desire to harm self or others. Onset of symptoms was July 10, 2024 at 10:20. Care prior to arrival: Medication(s) given: Normal saline infusion, 500 mL, IV initiated. 18 GA, in the left in the right antecubital area, Glucose check: 105. 11:12 Method Of Arrival: EMS: [facility] db 11:12 Acuity: BENNIE 2 db Triage Assessment: 11:12 The onset of the patients symptoms was July 10, 2024 at 10:20. General: Appears in no db apparent distress. comfortable, Behavior is calm, cooperative. Pain: Denies pain. Neuro: Level of Consciousness is awake, alert, obeys commands, Oriented to person, place, time, situation. Neuro: Reports blurred vision. Respiratory: Airway is patent Respiratory effort is even, unlabored, Respiratory pattern is regular, symmetrical. Stroke Activation: Symptom onset < 3 hours Physician: ED Attending; Name: ; Notified At: ; Arrived At: Physician: Mid-Level Provider; Name: ; Notified At: ; Arrived At: Physician: [not used]; Name: ; Notified At: ; Arrived At: Physician: [not used]; Name: ; Notified At: ; Arrived At: Physician: [not used]; Name: ; Notified At: ; Arrived At: Historical: - Allergies: 11:12 No Known Allergies; db - PMHx: 11:12 Anxiety; Depression; Hypertension; Meniere's disease; Sleep Apnea; ulcerative colitis; db psoriasis; low back pain; COPD; Transient cerebral ischemia; Hypercholesterolemia; - Immunization history:: Adult Immunizations unknown. - Infectious Disease History:: Denies. - Social history:: Smoking status: Patient denies any tobacco usage or history of. Screenin:00 [facility] ED Fall Risk Assessment (Adult) History of falling in the last 3 months, db including since admission No falls in past 3 months (0 pts) Confusion or Disorientation No (0 pts) Intoxicated or Sedated No (0 pts) Impaired Gait No (0 pts) Mobility Assist Device Used No (0 pt) Altered Elimination No (0 pt) Score/Fall Risk Level 0 - 2 = Low Risk Oriented to surroundings, Maintained a safe environment. Abuse screen: Denies threats or abuse. Denies injuries from another. Nutritional screening: No deficits noted. Tuberculosis screening: No symptoms or risk factors identified. Assessment: 11:25 Reassessment: Patient appears in no apparent distress at this time. Patient and/or db family updated on plan of care and expected duration. Pain level reassessed. Patient is alert, oriented x 3, equal unlabored respirations, skin warm/dry/pink. SEE TRIAGE FOR INITIAL ASSESSMENT. 11:33 VAN Scoring: Arm Drift: Patients demonstrates NO arm weakness. Patient is VAN Negative. db Visual Disturbance: No visual disturbance noted. Aphasia: No aphasia noted. Neglect: No neglect noted. [place] Swallow Protocol Brief Cognitive Screen What is your name? Normal, Where are you right now? Normal, What year is it? Normal. Oral Mechanism Examination Facial Symmetry: Normal, Motion: Normal, Lip Closure: Normal, Oral Mechanism Result: Normal. 3 oz Water Swallow Challenge: Pt able to drink all water without stopping, coughing, choking or throat clearing: Yes Result: PASS MD Notified: Pat Minaya MD. [place] Swallow Protocol Exclusion Criteria: Exclusion Criteria Result: Proceed. 12:00 Reassessment: SEE NIH FLOW SHEET. db 13:14 Reassessment: TNK GIVEN SEE MAR. SEE TNK FLOW SHEET FOR DOCUMENTATION. db 14:17 Reassessment: CALLED [facility] TO GIVE REPORT. db 14:27 Reassessment: REPORT GIVEN TO IMMANUEL NOLAN AT [facility]. db 15:00 Reassessment: Patient appears in no apparent distress at this time. Patient and/or db family updated on plan of care and expected duration. Pain level reassessed. Patient is alert, oriented x 3, equal unlabored respirations, skin warm/dry/pink. 16:00 Reassessment: FAMILY IS AT PATIENT BEDSIDE. db 17:25 General: Appears in no apparent distress. comfortable, Behavior is calm, cooperative. db Neuro: Level of Consciousness is awake, alert, obeys commands, Oriented to person, place, time, situation. 17:25 Reassessment: EMS ARRIVAL FOR PATIENT TRANSPORT. db Vital Signs: 11:12 BP 122 / 66; Pulse 73; Resp 18; Pulse Ox 95% ; Weight 100.7 kg; Height 5 ft. 9 in. ; db 12:00 BP 130 / 62; Pulse 72; Resp 18; Pulse Ox 96% ; db 13:08 BP 134 / 64; Pulse 64; Resp 16; Temp 98.5; Pulse Ox 93% ; db 14:00 BP 125 / 66; Pulse 74; Resp 16; Pulse Ox 94% ; db 16:00 BP 161 / 74; Pulse 70; Resp 17; Pulse Ox 94% on R/A; db 17:00 BP 137 / 51; Pulse 68; Resp 16; Pulse Ox 93% ; db 17:30 BP 162 / 76; Pulse 73; Resp 18; Pulse Ox 93% ; db 11:12 Body Mass Index 32.78 (100.70 kg, 175.26 cm) db Arnoldo Coma Score: 13:08 Eye Response: spontaneous(4). Motor Response: obeys commands(6). Verbal Response: db oriented(5). Total: 15. NIH Stroke Scale Scores: 17:29 NIHSS Score: 3 db ED Course: 11:09 Patient arrived in ED. bd 11:10 Pat Minaya MD is Attending Physician. gb1 11:12 Arm band placed on Patient placed in an exam room. db 11:12 Maintain EMS IV. Dressing intact. Good blood return noted. Site clean \T\ dry. Gauge \T\ db site: 18 G BILATERAL AC. Flushed with 10 mL NS. 11:29 CT Stroke Brain w/o Contrast In Process Unspecified. EDMS 11:30 CT Head Angio In Process Unspecified. EDMS 11:30 CT Neck Angio In Process Unspecified. EDMS 11:43 Jessica Magallon, RN is Primary Nurse. db 11:45 X-ray completed. Portable x-ray completed in exam room. Patient tolerated procedure mh1 well. 11:48 Stroke CXR 1 View In Process Unspecified. EDMS 11:50 Triage completed. db 12:00 Patient has correct armband on for positive identification. Bed in low position. Call db light in reach. Side rails up X2. Client placed on continuous cardiac and pulse oximetry monitoring. NIBP monitoring applied. electronic device monitor on. Pulse ox on. NIBP on. Warm blanket given. Pillow given. 12:[address] [facility]. bd 12:23 pt denied at [facility] due to no beds at any [facility] hospitals per Shaneka. bd 12:36 initiated transfer to [facility]. bd 14:32 pt accepted in transfer to [facility] ER by dr Garber admin approval given by Ct Mack. 15:16 Patient moved to [facility] via wheelchair. db 15:44 Brain Wo Cont In Process Unspecified. EDMS 16:00 Patient moved back from MRI. db 17:25 Provided Education on: TRANSFER. db 17:25 No provider procedures requiring assistance completed. Patient transferred, IV remains db in place. Administered Medications: 13:14 Drug: TNK FOR STROKE - Tenecteplase IV (Administer 10 ml NS flush BEFORE and db AFTER tenecteplase) 0.25 mg/kg IV at per protocol once; 0.25mg/kg, MAX DOSE 25 mg, IVP over 5 seconds {Co-Signature: dd2 (MANOLO LOCKETT RN).} Route: IV; Rate: per protocol; Site: left antecubital; 17:46 Follow up: Response: No adverse reaction; IV Status: Completed infusion; IV Intake: 5ml db 15:15 Drug: Ativan IVP 0.5 mg IVP once Route: IVP; Site: left antecubital; db 17:46 Follow up: Response: No adverse reaction db Medication: 12:01 VIS not applicable for this client. db Point of Care Testing: Blood Glucose: 11:12 Blood Glucose: 94 mg/dL; db Ranges: Intake: 17:46 IV: 5ml; Total: 5ml. db Outcome: 12:26 ER care complete, transfer ordered by . gb1 17:25 Transferred by ground EMS to [facility], Transfer form completed. Note: [facility] db CLEAR LAURA 17:25 Condition: stable 17:25 Instructed on the need for transfer, 17:46 Patient left the ED. db NIH Stroke Scale - NIH Stroke Score Date: 07/10/2024 Time: 17:29 Total Score = 3 10. Dysarthria (speech clarity - read or repeat words) - 0(Normal) 11. Extinction and Inattention (visual/tactile/auditory/spatial/personal) - 0(No abnormality) 1a. Level of Consciousness (LOC) - 0(Alert) 1b. Level of Consciousness (LOC) (Month \T\ Age) - 0(Both) 1c. LOC Commands (Open \T\ Closes Eyes/Copra Sampler) - 0(Both) 2. Best Gaze (Lateral Gaze Paresis) - 0(Normal) 3. Visual Field Loss - 1(Partial hemianopia) 4. Facial Palsy - 0(Normal) 5a. Left Arm: Motor (10-second hold) - 0(No drift) 5b. Right Arm: Motor (10-second hold) - 0(No drift) 6a. Left Leg: Motor (5-second hold - always test supine) - 1(Drift) 6b. Right Leg: Motor (5-second hold - always test supine) - 0(No drift) 7. Limb Ataxia (finger/nose \T\ heel/paul - test with eyes open) - 1(Present in one limb) 8. Sensory Loss (pinprick arms/legs/face) - 0(Normal) 9. Best Language: Aphasia (description/naming/reading) - 0(No aphasia) Initials: db Signatures: Dispatcher [employer] EDMS Liz Evans Martha 1 Jessica Magallon RN RN db Pat Minaya MD MD gb1 MANOLO LOCKETT RN dd2 Corrections: (The following items were deleted from the chart) 17:32 11:33 NIHSS Score: 2 db db
[2024-07-10 12:30] LABS: Anion Gap 7.8 mEq/L (5.0-15.0); Magnesium 2.2 mg/dL (1.6-2.4); Potassium 3.8 mEq/L (3.5-5.1); Troponin High Sensitivity 5.3 pg/mL (<58.9)
[2024-07-10] MEDS ORDERED: TENECTEPLASE 50 MG/10 ML VIAL IV ONE (13:02)
[2024-07-10] MEDS ORDERED: LORazepam 2 MG/ML VIAL ONE (15:18)
--- NOTE | 2024-07-10 16:18 | RAD REPORT ---
EXAMINATION: MRI BRAIN WITHOUT CONTRAST CLINICAL INDICATION: NUMBNESS TECHNIQUE: Multiplanar multisequence MR images of the brain were obtained without intravenous contras t. Unless otherwise specified, incidental findings do not require dedicated imaging follow-up. COMPARISON: 07/10/2024 FINDINGS: INTRACRANIAL: Diffusion-weighted images show no acute or early subacute infarction. No abnormal brain parenchymal signal. The ventricles are normal in size and morphology. No augmented susceptibility. There is no mass effect or midline shift. No abnormal extraaxial fluid collection. VASCULATURE: Normal signal voids in the larger intracranial arteries and dural venous sinuses. SINUSES: The paranasal sinuses and mastoid air cells are predominantly clear. BONE: The marrow signal pattern is within normal limits. IMPRESSION: Negative for acutre CVA or other acute intracranial finding.
[2024-07-10 17:53] VITALS: TEMP 98.5
[2024-07-10 17:54] VITALS: O2SAT 94
[2024-07-10 17:56] VITALS: BP 161/74
--- NOTE | 2024-07-11 11:56 | EKG ---
Test Date: 2024-07-10 Test Time: 11:34:19 Mine Promotor: ARY MEASUREMENT RESULTS: Intervals: Rate: 73 WI: 348 QRSD: 100 QT: 436 QTc: 480 Ingalls: P: 63 WI: 348 QRS: -46 T: 21 INTERPRETIVE STATEMENTS: Sinus rhythm with 1st degree AV block Left anterior fascicular block Minimal voltage criteria for LVH, may be normal variant Prolonged QT Abnormal ECG Compared to ECG 12/05/2018 15:45:15 Prolonged QT interval now present Sinus tachycardia no longer present Electronically Signed On 07-11-24 11:53:15 CDT by Matthew Calvillo
== END 2024-07-10 17:46 ==
LOC: ER 10:53
DX: G45.9 Transient cerebral ischemic attack, unspecified (principal); I10 Essential (primary) hypertension; R29.703 NIHSS score 3
CPT/HCPCS: 36415; 70450; 70496; 70498; 70551; 71045; 80048; 82565; 82947; 83735; 84484; 85025; 85610; 85730; 93005; J3101; Q9967